=== PATIENT | female | born 1980 | race American Indian/Alaskan Native ===

== ENCOUNTER 2016-08-01 12:01 | Inpatient (IN) | payer MEDICAID ==
[2016-08-01] MEDS ORDERED: CELESTONE SOLUSPAN IM ONE (12:32)
[2016-08-01 14:39] LABS: Hematocrit 27.7 % (30.3-42.9); Mean Corpuscular HGB Conc 33 % (30-34); Mean Corpuscular Hemoglobin 28 pg (28-32); Mean Corpuscular Volume 86 fl (79-97); Platelet Count 486 K/mm3 (140-440); Red Blood Count 3.24 M/mm3 (3.65-5.03); Red Cell Distribution Width 14.7 % (13.2-15.2)
[2016-08-01 14:42] LABS: White Blood Count 21.7 K/mm3 (4.5-11.0)
[2016-08-01 15:00] LABS: Bilirubin,Urine NEG (Negative); Blood,Urine SM (Negative); Ketones,Urine NEG (Negative); Leukocyte Esterase,Urine NEG (Negative); Nitrite,Urine NEG (Negative); Urobilinogen,Urine < 2.0 mg/dL (<2.0)
[2016-08-01 15:03] LABS: Alanine Aminotransferase 9 units/L (7-56)
[2016-08-01 15:07] LABS: Lactate Dehydrogenase 262 units/L (91-180)
[2016-08-01] MEDS ORDERED: COLACE PO PRN (15:39)
--- NOTE | 2016-08-01 15:53 | History and Physical Report ---
History of Present Illness Date of examination: 08/01/16 Date of admission: 08/01/2016 History of present illness: 35y/o @27+3 weeks presents to the office to drop off her 24hr urine collection. BP found to be 184/86. Patient complains of facial edema and pedal edema. She reports overall not feeling well. Patient has had 3 prior pregnancies affected by preeclampsia. Late presentation to care @ 20 weeks. Patient has been normotensive until today. Past History Past Medical History: other (PIH; G6PD; sickle cell trait) Past Surgical History: other (excision of granulosa cell ovarian tumor) Family/Genetic History: sickle cell/trait Social history: - Obstetrical History Expected Date of Delivery: 10/28/16 Actual Gestation: 27 Week(s) 3 Day(s) : 6 Para: 3 Hx # Term Pregnancies: 3 Number of Pregnancies: 0 Spontaneous Abortions: 2 Induced : 0 Number of Living Children: 3 Medications and Allergies Allergies Allergy/AdvReac Type Severity Reaction Status Date / Time No Known Allergies Allergy Unverified 08/01/16 12:22 Active Meds: Active Medications Acetaminophen (Tylenol) 650 mg PO Q4H PRN PRN Reason: Pain MILD(1-3)/Fever >100.5/KHOURY Docusate Sodium (Colace) 100 mg PO Q12H PRN PRN Reason: Constipation Lactated Ringer's (Lactated Ringers) 1,000 mls @ 125 mls/hr IV DIRECT HI Methyldopa (Aldomet) 500 mg PO Q8HR [facility] Multivitamins/Iron/Calcium ( Vitamin) 1 each PO QDAY [facility] Review of Systems Constitutional: fatigue Eyes: blurred vision Gastrointestinal: no abdominal pain - Vital Signs Vital signs: Vital Signs Pulse BP 153 H 166/91 08/01/16 12:39 08/01/16 12:39 Temp Pulse Resp BP Pulse Ox 97.8 F 131 H 18 168/79 96 08/01/16 13:50 08/01/16 15:40 08/01/16 13:50 08/01/16 15:27 08/01/16 15:40 - Physical Exam Breasts: Positive: deferred Cardiovascular: Regular rate Lungs: Positive: Clear to auscultation Abdomen: Positive: normal appearance Results Result Diagrams: 08/01/16 14:10 08/01/16 14:10 Abnormal lab results 08/01/16 08/01/16 08/01/16 Range/Units 14:10 14:10 14:10 WBC 21.7 H (4.5-11.0) K/mm3 RBC 3.24 L (3.65-5.03) M/mm3 Hgb 9.0 L (10.1-14.3) gm/dl Hct 27.7 L (30.3-42.9) % Plt Count 486 H (140-440) K/mm3 Creatinine 0.4 L (0.7-1.2) mg/dL Lactate Dehydrogenase 262 H (91-180) units/L Ur Specific [place] 1.002 L (1.003-1.030) All other labs normal. Assessment and Plan - Patient Problems (1) induced hypertension, antepartum Current Visit: Yes Status: Acute Plan to address problem: admit for blood pressure monitoring preeclampsia workup initiate steroid therapy and anti-hypertensives
[2016-08-01] MEDS: ALDOMET PO SCH ×2 (16:12→22:50)
[2016-08-01] MEDS: APRESOLINE IV PRN ×2 (16:35→18:51)
[2016-08-01] MEDS: LACTATED RINGERS 1,000 ML IV SCH (18:58)
[2016-08-01] MEDS: TYLENOL PO PRN (22:45)
[2016-08-02] MEDS: ALDOMET PO SCH ×3 (05:58→21:20)
--- NOTE | 2016-08-02 10:17 | Ultrasound Report ---
OB ULTRASOUND Technique: Transabdominal ultrasound with Doppler interrogation. Gestation: Single Position: Breech Amniotic Fluid: Normal IRENE = 8.7 cm Placenta: Anterior Placental Grade: 0 Heart Rate: 159 BPM BPD: 6.5 cm = 26 w 1 d HC: 25.5 cm = 27 w 5 d AC: 23.1 cm = 27 w 3 d FL: 5.1 cm = 27 w 1 d HC/AC Ratio: 1.11 Cephalic Index: 72.2 Estimated Weight: 2 pounds, 5 ounces or 1051 grams LMP: Not given Clinical age = 27 w 3 d EDC: 10/28/16 US Gest. Age = 27 w 1 d EDC: 10/30/16
--- NOTE | 2016-08-02 13:46 | Progress Note ---
Assessment and Plan IUP at 27 weeks with chronic hypertension vs. early preeclampsia. Patient has been having angry outbursts in the hospital which are in turn increasing her blood pressure.Patient is in the midst of a 24 hour urine collection. She has received 2 doses of steroids at this point. Will await results of urine collection. Hope to prolong if possible. Continue to monitor. Subjective - Subjective Date of service: 08/02/16 Principal diagnosis: Hypertension in Interval history: Patient here for management of hypertension in . Patient was very upset about food offered this morning for breakfast. Patient was also arguing with partner on telephone re: household issues. Patient reports: movement normal, other (mild headache) Objective - Vital Signs Vital Signs: Vital Signs - 12hr 08/02/16 08/02/16 08/02/16 01:13 01:18 01:44 Temperature Pulse Rate 127 H 129 H 127 H Pulse Rate [ Apical] Respiratory Rate Blood Pressure 142/76 Blood Pressure [Right Arm] O2 Sat by Pulse 95 95 Oximetry 08/02/16 08/02/16 08/02/16 01:45 01:50 01:55 Temperature Pulse Rate 126 H 127 H 126 H Pulse Rate [ 127 H Apical] Respiratory 20 Rate Blood Pressure Blood Pressure 142/76 [Right Arm] O2 Sat by Pulse 95 96 96 Oximetry 08/02/16 08/02/16 08/02/16 02:00 02:05 02:56 Temperature Pulse Rate 125 H 130 H 139 H Pulse Rate [ Apical] Respiratory Rate Blood Pressure Blood Pressure [Right Arm] O2 Sat by Pulse 96 97 96 Oximetry 08/02/16 08/02/16 08/02/16 03:01 03:06 03:32 Temperature Pulse Rate 131 H 127 H 125 H Pulse Rate [ Apical] Respiratory Rate Blood Pressure 173/74 Blood Pressure [Right Arm] O2 Sat by Pulse 96 95 Oximetry 08/02/16 08/02/16 08/02/16 03:35 03:38 04:56 Temperature 98.3 F Pulse Rate 123 H 141 H Pulse Rate [ 123 H Apical] Respiratory 20 Rate Blood Pressure 163/72 Blood Pressure 163/72 [Right Arm] O2 Sat by Pulse 97 Oximetry 08/02/16 08/02/16 08/02/16 05:01 05:06 05:11 Temperature Pulse Rate 131 H 120 H 125 H Pulse Rate [ Apical] Respiratory Rate Blood Pressure Blood Pressure [Right Arm] O2 Sat by Pulse 96 97 97 Oximetry 08/02/16 08/02/16 08/02/16 05:27 05:32 05:37 Temperature Pulse Rate 120 H 118 H 126 H Pulse Rate [ Apical] Respiratory Rate Blood Pressure 151/83 Blood Pressure [Right Arm] O2 Sat by Pulse 98 98 97 Oximetry 08/02/16 08/02/16 08/02/16 05:42 05:47 05:52 Temperature Pulse Rate 126 H 125 H 127 H Pulse Rate [ Apical] Respiratory Rate Blood Pressure Blood Pressure [Right Arm] O2 Sat by Pulse 97 97 97 Oximetry 08/02/16 08/02/16 08/02/16 05:57 05:58 06:00 Temperature Pulse Rate 132 H 127 H Pulse Rate [ 127 H Apical] Respiratory 20 Rate Blood Pressure 151/83 Blood Pressure 151/83 [Right Arm] O2 Sat by Pulse 96 Oximetry 08/02/16 08/02/16 08/02/16 07:16 07:18 07:20 Temperature 97.5 F L Pulse Rate 131 H 152 H Pulse Rate [ 136 H Apical] Respiratory 20 Rate Blood Pressure 134/59 Blood Pressure 134/59 [Right Arm] O2 Sat by Pulse 98 96 Oximetry 08/02/16 08/02/16 08/02/16 07:23 07:28 08:28 Temperature Pulse Rate 139 H 135 H 127 H Pulse Rate [ Apical] Respiratory Rate Blood Pressure Blood Pressure [Right Arm] O2 Sat by Pulse 95 95 97 Oximetry 08/02/16 08/02/16 08/02/16 08:33 08:35 08:38 Temperature Pulse Rate 130 H 133 H 131 H Pulse Rate [ Apical] Respiratory Rate Blood Pressure Blood Pressure [Right Arm] O2 Sat by Pulse 96 94 96 Oximetry 08/02/16 08/02/16 08/02/16 08:43 08:48 08:53 Temperature Pulse Rate 132 H 131 H 133 H Pulse Rate [ Apical] Respiratory Rate Blood Pressure Blood Pressure [Right Arm] O2 Sat by Pulse 96 96 95 Oximetry 08/02/16 08/02/16 08/02/16 08:58 09:03 09:08 Temperature Pulse Rate 134 H 134 H 135 H Pulse Rate [ Apical] Respiratory Rate Blood Pressure Blood Pressure [Right Arm] O2 Sat by Pulse 96 95 95 Oximetry 08/02/16 08/02/1617 09:13 09:18 09:23 Temperature Pulse Rate 133 H 135 H 134 H Pulse Rate [ Apical] Respiratory Rate Blood Pressure Blood Pressure [Right Arm] O2 Sat by Pulse 95 95 95 Oximetry 08/02/16 08/02/16 08/02/16 09:28 09:33 12:54 Temperature Pulse Rate 134 H 135 H 124 H Pulse Rate [ Apical] Respiratory Rate Blood Pressure Blood Pressure [Right Arm] O2 Sat by Pulse 95 95 98 Oximetry 08/02/16 08/02/16 08/02/16 12:59 13:00 13:04 Temperature Pulse Rate 127 H 132 H 128 H Pulse Rate [ Apical] Respiratory Rate Blood Pressure 187/104 Blood Pressure [Right Arm] O2 Sat by Pulse 97 97 Oximetry - Exam Breasts: deferred Cardiovascular: Regular rate, Normal S1, Normal S2 Lungs: Clear to auscultation, Normal air movement Abdomen: Present: normal appearance, soft, normal bowel sounds Uterus: Present: normal Extremities: normal Deep Tendon Reflex Grade: Normal +2 - Labs Labs: Abnormal Labs 08/01/16 08/01/16 08/01/16 14:10 14:10 14:10 WBC 21.7 H RBC 3.24 L Hgb 9.0 L Hct 27.7 L Plt Count 486 H Creatinine 0.4 L Lactate Dehydrogenase 262 H Ur Specific [place] 1.002 L Laboratory Results - last 24 hr 08/01/16 08/01/16 08/01/16 14:10 14:10 14:10 WBC 21.7 H RBC 3.24 L Hgb 9.0 L Hct 27.7 L MCV 86 MCH 28 MCHC 33 RDW 14.7 Plt Count 486 H Creatinine 0.4 L Estimated GFR > 60 Uric Acid 6.0 AST 17 ALT 9 Lactate Dehydrogenase 262 H Urine Color Straw Urine Turbidity Clear Urine pH 7.0 Ur Specific [place] 1.002 L Urine Protein 30 mg/dl Urine Glucose (UA) Neg Urine Ketones Neg Urine Blood Sm Urine Nitrite Neg Urine Bilirubin Neg Urine Urobilinogen < 2.0 Ur Leukocyte Esterase Neg Urine WBC (Auto) Not Reportable Urine RBC (Auto) Not Reportable
[2016-08-02 15:10] LABS: Total Protein 24 Hour,Urine 2749.5 (2-200)
[2016-08-02] MEDS ORDERED: ZOFRAN ONE (16:45)
[2016-08-02] MEDS ORDERED: ZOFRAN IV PRN (16:45)
[2016-08-02] MEDS ORDERED: CELESTONE SOLUSPAN IM ONE (19:09)
[2016-08-02] MEDS: TYLENOL PO PRN (20:27)
[2016-08-02] MEDS: APRESOLINE IV PRN (21:34)
[2016-08-02] MEDS: LACTATED RINGERS 1,000 ML IV SCH (21:35)
[2016-08-03] MEDS: ALUM-MAG HYDROX-SIMETH 200-200-20MG/5ML PO PRN (00:45)
[2016-08-03] MEDS: AMBIEN PO PRN ×2 (00:48→20:43)
[2016-08-03] MEDS: ALDOMET PO SCH ×3 (05:22→22:11)
[2016-08-03] MEDS: LACTATED RINGERS 1,000 ML IV SCH ×2 (06:27→15:24)
[2016-08-03] MEDS ORDERED: MAGNESIUM SULFATE 4GM/100ML 4 GM/100 ML BAG IV ONE (06:54)
[2016-08-03] MEDS ORDERED: MAGNESIUM SULFATE 40GM/1000ML 40 GM/1,000 ML BAG IV SCH (07:00)
--- NOTE | 2016-08-03 07:01 | Progress Note ---
Assessment and Plan IUP at 27.5 here for monitoring of preeclampsia. Patient has completed 24 hour urine with 2700 grams of proteint. Complete bed rest recommended for patient. Will continue current regimen with inpatient monitoring. Will repeat PIH labs today. Steroid course completed. Subjective - Subjective Date of service: 08/03/16 Principal diagnosis: Hypertension in Interval history: Patient here for management of hypertension in . Patient has completed 24 hour urine with showed 2700 grams of protein. Patient blood pressure stays in normal range when lying down, but is more labile when awake and moving. Patient reports: new complaints (nausea and vomiting), movement normal, other (mild headache) Objective - Vital Signs Vital Signs: Vital Signs - 12hr 08/02/16 08/02/16 08/02/16 20:01 20:04 20:06 Temperature 98.0 F Pulse Rate 122 H Respiratory 18 Rate Blood Pressure 153/79 O2 Sat by Pulse 98 Oximetry 08/02/16 08/02/16 08/02/16 20:09 20:14 20:19 Temperature Pulse Rate 124 H 124 H 125 H Respiratory Rate Blood Pressure O2 Sat by Pulse 97 97 97 Oximetry 08/02/16 08/02/16 08/02/16 20:24 20:27 20:40 Temperature Pulse Rate 124 H 121 H Respiratory 18 Rate Blood Pressure O2 Sat by Pulse 97 99 Oximetry 08/02/16 08/02/16 08/02/16 20:45 20:50 20:55 Temperature Pulse Rate 122 H 120 H 120 H Respiratory Rate Blood Pressure O2 Sat by Pulse 99 99 98 Oximetry 08/02/16 08/02/16 08/02/16 21:00 21:01 21:15 Temperature Pulse Rate 122 H 123 H 125 H Respiratory Rate Blood Pressure 168/93 167/89 O2 Sat by Pulse 97 94 Oximetry 08/02/16 08/02/16 08/02/16 21:20 21:34 21:50 Temperature Pulse Rate 125 H 125 H 131 H Respiratory Rate Blood Pressure 167/89 167/89 139/58 O2 Sat by Pulse Oximetry 08/02/16 08/02/16 08/02/16 22:59 23:50 23:52 Temperature 97.8 F Pulse Rate 130 H 125 H Respiratory 20 Rate Blood Pressure 122/56 O2 Sat by Pulse 97 Oximetry 08/02/16 08/03/16 08/03/16 23:59 00:05 00:09 Temperature Pulse Rate 127 H 127 H 123 H Respiratory Rate Blood Pressure 191/107 173/85 160/74 O2 Sat by Pulse Oximetry 08/03/16 08/03/16 08/03/16 00:24 00:39 00:54 Temperature Pulse Rate 120 H 122 H 122 H Respiratory Rate Blood Pressure 160/74 167/75 182/83 O2 Sat by Pulse Oximetry 08/03/16 08/03/16 08/03/16 01:00 01:32 02:02 Temperature Pulse Rate 121 H 126 H 126 H Respiratory Rate Blood Pressure 158/74 121/56 128/59 O2 Sat by Pulse Oximetry 08/03/16 08/03/16 08/03/16 02:46 03:44 03:47 Temperature Pulse Rate 123 H 120 H 122 H Respiratory Rate Blood Pressure 146/63 138/68 O2 Sat by Pulse 97 93 Oximetry 08/03/16 08/03/16 08/03/16 03:49 03:51 03:54 Temperature 97.4 F L Pulse Rate 120 H 122 H Respiratory 20 Rate Blood Pressure O2 Sat by Pulse 97 97 Oximetry 08/03/16 08/03/16 08/03/16 03:59 04:04 04:09 Temperature Pulse Rate 122 H 116 H 122 H Respiratory Rate Blood Pressure O2 Sat by Pulse 98 98 96 Oximetry 08/03/16 08/03/16 08/03/16 04:14 04:19 04:24 Temperature Pulse Rate 119 H 122 H 121 H Respiratory Rate Blood Pressure O2 Sat by Pulse 97 96 96 Oximetry 08/03/16 08/03/16 08/03/16 04:29 04:34 04:39 Temperature Pulse Rate 121 H 119 H 121 H Respiratory Rate Blood Pressure O2 Sat by Pulse 96 96 96 Oximetry 08/03/16 08/03/16 08/03/16 04:44 04:47 04:49 Temperature Pulse Rate 119 H 122 H 121 H Respiratory Rate Blood Pressure 129/62 O2 Sat by Pulse 96 94 96 Oximetry 08/03/16 08/03/16 08/03/16 04:54 04:59 05:19 Temperature Pulse Rate 121 H 122 H 125 H Respiratory Rate Blood Pressure O2 Sat by Pulse 96 96 94 Oximetry 08/03/16 08/03/16 08/03/16 05:20 05:22 05:25 Temperature Pulse Rate 127 H 127 H 124 H Respiratory Rate Blood Pressure 156/72 156/72 O2 Sat by Pulse 94 97 Oximetry 08/03/16 08/03/16 08/03/16 05:47 06:22 06:27 Temperature Pulse Rate 117 H 125 H 120 H Respiratory Rate Blood Pressure 133/60 O2 Sat by Pulse 96 92 Oximetry 08/03/16 08/03/16 08/03/16 06:32 06:34 06:37 Temperature Pulse Rate 122 H 123 H 126 H Respiratory Rate Blood Pressure O2 Sat by Pulse 95 92 95 Oximetry 08/03/16 08/03/16 06:39 06:46 Temperature Pulse Rate 126 H 122 H Respiratory Rate Blood Pressure 137/76 O2 Sat by Pulse 92 Oximetry - Exam Cardiovascular: Regular rate, Normal S1, Normal S2 Lungs: Clear to auscultation, Normal air movement Abdomen: Present: normal appearance, soft. Absent: distention, tenderness Uterus: Present: normal FHR: auscultation normal - Labs Labs: Abnormal Labs 08/01/16 08/01/16 08/01/16 14:10 14:10 14:10 WBC 21.7 H RBC 3.24 L Hgb 9.0 L Hct 27.7 L Plt Count 486 H Creatinine 0.4 L Lactate Dehydrogenase 262 H Ur Specific [place] 1.002 L Ur Total Protein 24 Hr Urine Total Protein 08/01/16 Unknown WBC RBC Hgb Hct Plt Count Creatinine Lactate Dehydrogenase Ur Specific [place] Ur Total Protein 24 Hr 2749.50 H Urine Total Protein 39 H Laboratory Results - last 24 hr 08/01/16 Unknown Urine Total Volume 7050 Urine Creatinine 16.8 Ur Creatinine 24 Hour 1.2 Ur Total Protein 24 Hr 2749.50 H Urine Total Protein 39 H
[2016-08-03 07:52] LABS: Hematocrit 24.3 % (30.3-42.9); Hemoglobin 8.1 gm/dl (10.1-14.3); Mean Corpuscular HGB Conc 33 % (30-34); Mean Corpuscular Hemoglobin 29 pg (28-32); Mean Corpuscular Volume 85 fl (79-97); Platelet Count 429 K/mm3 (140-440); Red Blood Count 2.85 M/mm3 (3.65-5.03); Red Cell Distribution Width 14.7 % (13.2-15.2); White Blood Count 16.8 K/mm3 (4.5-11.0)
[2016-08-03 08:10] LABS: Alanine Aminotransferase 13 units/L (7-56)
[2016-08-03] MEDS: PRENATAL VITAMIN PO SCH (10:05)
[2016-08-03] MEDS: APRESOLINE IV PRN ×2 (13:56→15:27)
[2016-08-03] MEDS: TYLENOL PO PRN (16:03)
[2016-08-04] MEDS: TYLENOL PO PRN ×2 (02:12→10:53)
[2016-08-04] MEDS: LACTATED RINGERS 1,000 ML IV SCH ×2 (02:15→15:53)
--- NOTE | 2016-08-04 08:43 | Progress Note ---
Assessment and Plan A: IUP at 27w6d s/p 2 doses of betamethasone Elevated blood pressure- chronic hypertension vs mild preeeclampsia H/o preeclampsia in three previous pregnancies Breech on last ultrasound on 08/01/16. BPP 12/02 P: Continue close monitoring. MFM consult BPP today, verify presentation PIH labs and Type and Screen today. Subjective - Subjective Date of service: 08/04/16 Principal diagnosis: Hypertension in ; IUP at 27w6d Interval history: Pt reports mild headache and nasal stuffiness presently. She denies vaginal bleeding, leakage of fluid or contractions. Patient reports: new complaints (nausea and vomiting), movement normal, other (mild headache), no loss of fluid, no vaginal bleeding, no contractions Objective - Vital Signs Vital Signs: Vital Signs - 12hr 08/03/16 08/03/16 08/03/16 20:42 20:47 20:52 Temperature Pulse Rate 132 H 125 H 127 H Pulse Rate [ Apical] Respiratory Rate Blood Pressure Blood Pressure [Right Arm] O2 Sat by Pulse 97 97 97 Oximetry 08/03/16 08/03/16 08/03/16 20:57 20:59 21:02 Temperature Pulse Rate 127 H 125 H 124 H Pulse Rate [ Apical] Respiratory Rate Blood Pressure 165/78 Blood Pressure [Right Arm] O2 Sat by Pulse 97 94 96 Oximetry 08/03/16 08/03/16 08/03/16 21:07 21:12 21:17 Temperature Pulse Rate 125 H 125 H 128 H Pulse Rate [ Apical] Respiratory Rate Blood Pressure Blood Pressure [Right Arm] O2 Sat by Pulse 97 95 95 Oximetry 08/03/16 08/03/16 08/03/16 21:19 21:22 21:25 Temperature Pulse Rate 127 H 128 H 128 H Pulse Rate [ Apical] Respiratory Rate Blood Pressure Blood Pressure [Right Arm] O2 Sat by Pulse 94 95 94 Oximetry 08/03/16 08/03/16 08/03/16 21:27 21:32 21:37 Temperature Pulse Rate 130 H 130 H 124 H Pulse Rate [ Apical] Respiratory Rate Blood Pressure Blood Pressure [Right Arm] O2 Sat by Pulse 95 96 96 Oximetry 08/03/16 08/03/16 08/03/16 21:42 21:59 22:08 Temperature Pulse Rate 129 H 126 H 129 H Pulse Rate [ Apical] Respiratory Rate Blood Pressure 182/83 157/72 Blood Pressure [Right Arm] O2 Sat by Pulse 95 Oximetry 08/03/16 08/03/16 08/03/16 22:11 22:12 22:17 Temperature Pulse Rate 129 H 124 H 122 H Pulse Rate [ Apical] Respiratory Rate Blood Pressure 157/72 Blood Pressure [Right Arm] O2 Sat by Pulse 97 97 Oximetry 08/03/16 08/03/16 08/03/16 22:22 22:27 22:32 Temperature Pulse Rate 124 H 131 H 128 H Pulse Rate [ Apical] Respiratory Rate Blood Pressure Blood Pressure [Right Arm] O2 Sat by Pulse 96 97 98 Oximetry 08/03/16 08/03/16 08/03/16 22:37 22:42 22:44 Temperature Pulse Rate 123 H 125 H 131 H Pulse Rate [ Apical] Respiratory Rate Blood Pressure Blood Pressure [Right Arm] O2 Sat by Pulse 97 95 93 Oximetry 08/03/16 08/03/16 08/03/16 22:59 23:53 23:58 Temperature Pulse Rate 129 H 124 H 123 H Pulse Rate [ Apical] Respiratory Rate Blood Pressure 140/63 Blood Pressure [Right Arm] O2 Sat by Pulse 96 96 Oximetry 08/03/16 08/04/16 08/04/16 23:59 00:19 00:24 Temperature Pulse Rate 123 H 124 H 123 H Pulse Rate [ Apical] Respiratory Rate Blood Pressure 143/67 Blood Pressure [Right Arm] O2 Sat by Pulse 92 96 97 Oximetry 08/04/16 08/04/16 08/04/16 00:29 00:34 00:39 Temperature Pulse Rate 127 H 129 H 127 H Pulse Rate [ Apical] Respiratory Rate Blood Pressure Blood Pressure [Right Arm] O2 Sat by Pulse 96 97 96 Oximetry 08/04/16 08/04/16 08/04/16 00:44 00:49 00:54 Temperature Pulse Rate 131 H 127 H 126 H Pulse Rate [ Apical] Respiratory Rate Blood Pressure Blood Pressure [Right Arm] O2 Sat by Pulse 97 96 97 Oximetry 08/04/16 08/04/16 08/04/16 00:59 01:04 01:09 Temperature Pulse Rate 127 H 126 H 127 H Pulse Rate [ Apical] Respiratory Rate Blood Pressure 136/69 Blood Pressure [Right Arm] O2 Sat by Pulse 97 97 96 Oximetry 08/04/16 08/04/16 08/04/16 01:14 01:19 01:24 Temperature Pulse Rate 127 H 128 H 127 H Pulse Rate [ Apical] Respiratory Rate Blood Pressure Blood Pressure [Right Arm] O2 Sat by Pulse 96 96 95 Oximetry 08/04/16 08/04/16 08/04/16 01:29 01:34 01:39 Temperature Pulse Rate 124 H 127 H 126 H Pulse Rate [ Apical] Respiratory Rate Blood Pressure Blood Pressure [Right Arm] O2 Sat by Pulse 96 96 96 Oximetry 08/04/16 08/04/16 08/04/16 01:44 01:49 01:54 Temperature Pulse Rate 127 H 123 H 124 H Pulse Rate [ Apical] Respiratory Rate Blood Pressure Blood Pressure [Right Arm] O2 Sat by Pulse 96 96 96 Oximetry 08/04/16 08/04/16 08/04/16 01:59 02:10 02:15 Temperature Pulse Rate 128 H 121 H 121 H Pulse Rate [ Apical] Respiratory Rate Blood Pressure Blood Pressure [Right Arm] O2 Sat by Pulse 96 96 97 Oximetry 08/04/16 08/04/16 08/04/16 02:16 02:19 02:20 Temperature 97.8 F Pulse Rate 122 H 118 H Pulse Rate [ 120 H Apical] Respiratory 20 Rate Blood Pressure 145/65 Blood Pressure 145/65 [Right Arm] O2 Sat by Pulse 97 97 Oximetry 08/04/16 08/04/16 08/04/16 02:25 02:30 02:35 Temperature Pulse Rate 120 H 121 H 118 H Pulse Rate [ Apical] Respiratory Rate Blood Pressure Blood Pressure [Right Arm] O2 Sat by Pulse 97 97 98 Oximetry 08/04/16 08/04/16 08/04/16 02:40 02:45 02:50 Temperature Pulse Rate 118 H 118 H 116 H Pulse Rate [ Apical] Respiratory Rate Blood Pressure Blood Pressure [Right Arm] O2 Sat by Pulse 96 96 97 Oximetry 08/04/16 08/04/16 08/04/16 02:55 02:58 03:00 Temperature Pulse Rate 127 H 128 H 120 H Pulse Rate [ Apical] Respiratory Rate Blood Pressure Blood Pressure [Right Arm] O2 Sat by Pulse 96 93 96 Oximetry 08/04/16 08/04/16 08/04/16 03:05 03:10 03:15 Temperature Pulse Rate 121 H 125 H 119 H Pulse Rate [ Apical] Respiratory Rate Blood Pressure Blood Pressure [Right Arm] O2 Sat by Pulse 96 97 97 Oximetry 08/04/16 08/04/16 08/04/16 03:20 03:25 03:30 Temperature Pulse Rate 119 H 115 H 116 H Pulse Rate [ Apical] Respiratory Rate Blood Pressure Blood Pressure [Right Arm] O2 Sat by Pulse 97 96 97 Oximetry 08/04/16 08/04/16 08/04/16 03:35 03:40 03:45 Temperature Pulse Rate 119 H 118 H 117 H Pulse Rate [ Apical] Respiratory Rate Blood Pressure Blood Pressure [Right Arm] O2 Sat by Pulse 97 96 95 Oximetry 08/04/16 08/04/16 08/04/16 03:50 03:55 03:59 Temperature Pulse Rate 112 H 115 H 116 H Pulse Rate [ Apical] Respiratory Rate Blood Pressure 127/65 Blood Pressure [Right Arm] O2 Sat by Pulse 97 95 Oximetry 08/04/16 08/04/16 08/04/16 04:00 04:05 04:10 Temperature Pulse Rate 117 H 117 H 115 H Pulse Rate [ Apical] Respiratory Rate Blood Pressure Blood Pressure [Right Arm] O2 Sat by Pulse 97 95 95 Oximetry 08/04/16 08/04/16 08/04/16 04:15 04:20 04:22 Temperature Pulse Rate 115 H 114 H 117 H Pulse Rate [ Apical] Respiratory Rate Blood Pressure Blood Pressure [Right Arm] O2 Sat by Pulse 95 95 94 Oximetry 08/04/16 08/04/16 08/04/16 04:25 04:27 04:30 Temperature Pulse Rate 115 H 116 H 113 H Pulse Rate [ Apical] Respiratory Rate Blood Pressure Blood Pressure [Right Arm] O2 Sat by Pulse 95 94 95 Oximetry 08/04/16 08/04/16 08/04/16 04:32 04:35 04:48 Temperature Pulse Rate 120 H 117 H 111 H Pulse Rate [ Apical] Respiratory Rate Blood Pressure Blood Pressure [Right Arm] O2 Sat by Pulse 94 94 97 Oximetry 08/04/16 08/04/16 08/04/16 04:53 04:58 04:59 Temperature Pulse Rate 114 H 116 H 112 H Pulse Rate [ Apical] Respiratory Rate Blood Pressure 150/79 Blood Pressure [Right Arm] O2 Sat by Pulse 92 94 Oximetry 08/04/16 08/04/16 08/04/16 05:03 05:08 05:11 Temperature Pulse Rate 113 H 117 H 115 H Pulse Rate [ Apical] Respiratory Rate Blood Pressure Blood Pressure [Right Arm] O2 Sat by Pulse 94 94 93 Oximetry 08/04/16 08/04/16 08/04/16 05:13 05:18 05:23 Temperature Pulse Rate 111 H 115 H 112 H Pulse Rate [ Apical] Respiratory Rate Blood Pressure Blood Pressure [Right Arm] O2 Sat by Pulse 97 94 95 Oximetry 08/04/16 08/04/16 08/04/16 05:25 05:28 05:30 Temperature Pulse Rate 113 H 113 H 112 H Pulse Rate [ Apical] Respiratory Rate Blood Pressure Blood Pressure [Right Arm] O2 Sat by Pulse 94 95 94 Oximetry 08/04/16 08/04/16 08/04/16 05:33 05:36 05:38 Temperature Pulse Rate 112 H 112 H 111 H Pulse Rate [ Apical] Respiratory Rate Blood Pressure Blood Pressure [Right Arm] O2 Sat by Pulse 94 94 94 Oximetry 08/04/16 08/04/16 08/04/16 05:43 05:48 05:49 Temperature Pulse Rate 113 H 110 H 114 H Pulse Rate [ Apical] Respiratory Rate Blood Pressure Blood Pressure [Right Arm] O2 Sat by Pulse 94 94 94 Oximetry 08/04/16 08/04/16 08/04/16 05:53 05:55 05:58 Temperature Pulse Rate 113 H 111 H 111 H Pulse Rate [ Apical] Respiratory Rate Blood Pressure Blood Pressure [Right Arm] O2 Sat by Pulse 95 94 94 Oximetry 08/04/16 08/04/16 08/04/16 05:59 06:00 06:03 Temperature Pulse Rate 110 H 112 H 112 H Pulse Rate [ Apical] Respiratory Rate Blood Pressure 126/66 Blood Pressure [Right Arm] O2 Sat by Pulse 94 94 Oximetry 08/04/16 08/04/16 08/04/16 06:06 06:08 06:13 Temperature Pulse Rate 113 H 111 H 111 H Pulse Rate [ Apical] Respiratory Rate Blood Pressure Blood Pressure [Right Arm] O2 Sat by Pulse 94 95 95 Oximetry 08/04/16 08/04/16 08/04/16 06:18 06:23 06:28 Temperature Pulse Rate 112 H 113 H 114 H Pulse Rate [ Apical] Respiratory Rate Blood Pressure Blood Pressure [Right Arm] O2 Sat by Pulse 95 95 95 Oximetry 08/04/16 08/04/16 08/04/16 06:31 06:33 06:36 Temperature Pulse Rate 117 H 126 H 120 H Pulse Rate [ Apical] Respiratory Rate Blood Pressure Blood Pressure [Right Arm] O2 Sat by Pulse 94 96 94 Oximetry 08/04/16 08/04/16 08/04/16 06:38 06:43 06:48 Temperature Pulse Rate 115 H 112 H 110 H Pulse Rate [ Apical] Respiratory Rate Blood Pressure Blood Pressure [Right Arm] O2 Sat by Pulse 95 93 97 Oximetry 08/04/16 08/04/16 08/04/16 06:51 06:53 06:58 Temperature Pulse Rate 114 H 113 H 112 H Pulse Rate [ Apical] Respiratory Rate Blood Pressure Blood Pressure [Right Arm] O2 Sat by Pulse 86 95 95 Oximetry 08/04/16 08/04/16 08/04/16 06:59 07:03 07:10 Temperature Pulse Rate 110 H 116 H 126 H Pulse Rate [ Apical] Respiratory Rate Blood Pressure 160/85 Blood Pressure [Right Arm] O2 Sat by Pulse 93 97 97 Oximetry 08/04/16 08/04/16 08/04/16 07:15 07:20 07:25 Temperature Pulse Rate 120 H 111 H 112 H Pulse Rate [ Apical] Respiratory Rate Blood Pressure Blood Pressure [Right Arm] O2 Sat by Pulse 97 97 95 Oximetry 08/04/16 08/04/16 08/04/16 07:27 07:30 07:35 Temperature Pulse Rate 118 H 108 H 106 H Pulse Rate [ Apical] Respiratory Rate Blood Pressure Blood Pressure [Right Arm] O2 Sat by Pulse 94 94 93 Oximetry 08/04/16 08/04/16 08/04/16 07:40 07:43 07:45 Temperature Pulse Rate 97 H 105 H 109 H Pulse Rate [ Apical] Respiratory Rate Blood Pressure Blood Pressure [Right Arm] O2 Sat by Pulse 93 94 94 Oximetry 08/04/16 08/04/16 08/04/16 07:50 07:53 07:55 Temperature Pulse Rate 111 H 111 H 113 H Pulse Rate [ Apical] Respiratory Rate Blood Pressure Blood Pressure [Right Arm] O2 Sat by Pulse 93 92 95 Oximetry 08/04/16 08/04/16 08/04/16 07:59 08:00 08:01 Temperature Pulse Rate 109 H 114 H 110 H Pulse Rate [ Apical] Respiratory Rate Blood Pressure 150/85 159/107 Blood Pressure [Right Arm] O2 Sat by Pulse 93 92 Oximetry 08/04/16 08/04/16 08/04/16 08:02 08:05 08:10 Temperature Pulse Rate 106 H 116 H 111 H Pulse Rate [ Apical] Respiratory Rate Blood Pressure 157/70 Blood Pressure [Right Arm] O2 Sat by Pulse 93 93 Oximetry 08/04/16 08/04/16 08/04/16 08:15 08:20 08:25 Temperature Pulse Rate 114 H 107 H 111 H Pulse Rate [ Apical] Respiratory Rate Blood Pressure Blood Pressure [Right Arm] O2 Sat by Pulse 93 97 96 Oximetry 08/04/16 08/04/16 08/04/16 08:30 08:32 08:35 Temperature Pulse Rate 109 H 109 H 110 H Pulse Rate [ Apical] Respiratory Rate Blood Pressure Blood Pressure [Right Arm] O2 Sat by Pulse 96 94 95 Oximetry - Exam Breasts: deferred Cardiovascular: Regular rate Lungs: Clear to auscultation Abdomen: Present: soft (obese ) Uterus: Present: normal (gravid ) FHR: auscultation normal Uterine Contraction Monitor Mode: External Uterine Contraction Pattern: Absent Uterine Tone Measurement Phase: Resting Extremities: normal (SCDs on and functioning ) - Labs Labs: Abnormal Labs 08/01/16 08/01/16 08/01/16 14:10 14:10 14:10 WBC 21.7 H RBC 3.24 L Hgb 9.0 L Hct 27.7 L Plt Count 486 H Creatinine 0.4 L Lactate Dehydrogenase 262 H Ur Specific [place] 1.002 L Ur Total Protein 24 Hr Urine Total Protein 08/01/16 08/03/16 08/03/16 Unknown 07:43 07:43 WBC 16.8 H RBC 2.85 L Hgb 8.1 L Hct 24.3 L Plt Count Creatinine 0.3 L Lactate Dehydrogenase Ur Specific [place] Ur Total Protein 24 Hr 2749.50 H Urine Total Protein 39 H - Results US- obstetric: report reviewed
--- NOTE | 2016-08-04 10:35 | Ultrasound Report ---
BIOPHYSICAL PROFILE: INDICATION: well being, elevated BP, IUP at 27 weeks. COMPARISON: None similar. TECHNIQUE: Transabdominal ultrasound with Doppler interrogation. 2 - breathing movements 2 - movements 2 - posture and tone 2 - Qualitative amniotic fluid volume 8 - TOTAL SCORE OF POSSIBLE 8 Heart Rate (bpm) 145
[2016-08-04] MEDS: PRENATAL VITAMIN PO SCH ×2 (10:50→10:53)
[2016-08-04 10:57] LABS: Hematocrit 25.4 % (30.3-42.9); Hemoglobin 8.4 gm/dl (10.1-14.3); Mean Corpuscular HGB Conc 33 % (30-34); Mean Corpuscular Hemoglobin 28 pg (28-32); Mean Corpuscular Volume 85 fl (79-97); Platelet Count 419 K/mm3 (140-440); Red Blood Count 2.99 M/mm3 (3.65-5.03); Red Cell Distribution Width 15.1 % (13.2-15.2); White Blood Count 19.5 K/mm3 (4.5-11.0)
[2016-08-04 11:22] LABS: Alanine Aminotransferase 15 units/L (7-56); Lactate Dehydrogenase 207 units/L (91-180); Uric Acid 6.8 mg/dL (3.5-7.6)
[2016-08-04] MEDS: ALDOMET PO SCH ×2 (14:19→21:45)
[2016-08-04] MEDS: AMBIEN PO PRN (21:45)
--- NOTE | 2016-08-04 23:42 | Consultation ---
History of Present Illness Consult date: 08/04/16 Reason for consult: gestational hypertension (35y/o @27 weeks admitted due to PIH concerns based on her earlier BP found to be 184/86. . She has a at significant risk for recurrent preeclampsia with ALL prior pregnancies. ) Past History Past Medical History: hypertension, other (PIH; G6PD; sickle cell trait) Past Surgical History: other (excision of granulosa cell ovarian tumor) Family/Genetic History: sickle cell/trait - Obstetrical History : 6 Medications and Allergies Allergies Allergy/AdvReac Type Severity Reaction Status Date / Time aspirin AdvReac thins Verified 08/03/16 06:59 blood out naproxen AdvReac THINS Verified 08/03/16 06:59 BLOOD OUT Sulfa (Sulfonamide AdvReac thins Verified 08/03/16 06:59 Antibiotics) blood out sulfamethoxazole AdvReac thins Verified 08/03/16 06:59 [From Bactrim] blood out trimethoprim [From Bactrim] AdvReac thins Verified 08/03/16 06:59 blood out Home Medications Medication Instructions Recorded Confirmed Last Taken Type Vit-Fe Fumar-FA [ 1 tab PO QDAY 08/02/16 08/02/16 Unknown History Vitamin] Active Meds: Active Medications Acetaminophen (Tylenol) 650 mg PO Q4H PRN PRN Reason: Pain MILD(1-3)/Fever >100.5/KHOURY Last Admin: 08/04/16 10:53 Dose: 650 mg Al Hydrox/Mg Hydrox/Simethicone (Alum-Mag Hydrox-Simeth [phone]/5ml) 30 ml PO Q4H PRN PRN Reason: Indigestion Last Admin: 08/03/16 00:45 Dose: 30 ml Docusate Sodium (Colace) 100 mg PO Q12H PRN PRN Reason: Constipation Hydralazine HCl (Apresoline) 5 mg IV Q30MIN PRN PRN Reason: Hypertension Last Admin: 08/03/16 15:27 Dose: 5 mg Lactated Ringer's (Lactated Ringers) 1,000 mls @ 125 mls/hr IV DIRECT HI Last Admin: 08/04/16 15:53 Dose: 125 mls/hr Methyldopa (Aldomet) 500 mg PO Q8HR HI Last Admin: 08/04/16 21:45 Dose: 500 mg Multivitamins/Iron/Calcium ( Vitamin) 1 each PO QDAY [facility] Last Admin: 08/04/16 10:53 Dose: 1 each Ondansetron HCl (Zofran) 4 mg IV Q4H PRN PRN Reason: Nausea And Vomiting Last Admin: 08/02/16 16:54 Dose: 4 mg Zolpidem Tartrate (Ambien) 5 mg PO QHS PRN PRN Reason: Sleep Last Admin: 08/04/16 21:45 Dose: 5 mg - Vital Signs Vital signs: Vital Signs Pulse BP 153 H 166/91 08/01/16 12:39 08/01/16 12:39 Temp Pulse Resp BP Pulse Ox 97.7 F 134 H 20 134/85 77 L 08/04/16 20:19 08/04/16 22:59 08/04/16 20:19 08/04/16 22:59 08/04/16 12:12 Results Result Diagrams: 08/04/16 10:22 08/04/16 10:22 Abnormal lab results 08/04/16 08/04/16 Range/Units 10:22 10:22 WBC 19.5 H (4.5-11.0) K/mm3 RBC 2.99 L (3.65-5.03) M/mm3 Hgb 8.4 L (10.1-14.3) gm/dl Hct 25.4 L (30.3-42.9) % Creatinine 0.4 L (0.7-1.2) mg/dL Lactate Dehydrogenase 207 H (91-180) units/L All other labs normal. Assessment and Plan IMPRESSIONS: 1. IUP @ 27 weeks 2. Significantly elevated BPs that have required hydralazine therapy 3. 24-hr urine with 2.7 gm protein 4. Stable BPs post hydralazine 5. PIH labs otherwise unremarlable 6. Denies any GENER[employer] M[employer]ER Sx/Sy 7. RECOMMENDATIONS: 1. Betamethasone 2. MgSO4 for neuroprophylaxis 3. She will require serial PIH lbas with continued hospital stay 4. Is/Os 5. Monitor serial PIH labs 6. [facility] will follow-up.
[2016-08-05] MEDS: TYLENOL PO PRN ×2 (00:33→21:50)
[2016-08-05] MEDS: LACTATED RINGERS 1,000 ML IV SCH ×3 (00:34→15:51)
[2016-08-05] MEDS: ALDOMET PO SCH ×2 (06:40→15:53)
--- NOTE | 2016-08-05 08:08 | Ultrasound Report ---
ULTRASOUND OB LIMITED History: well being, need position Technique: Transabdominal ultrasound with Doppler interrogation. Gestation: Single Position: Cephalic Heart Rate: 158 BPM
[2016-08-05] MEDS: PRENATAL VITAMIN PO SCH (08:35)
--- NOTE | 2016-08-05 08:49 | Progress Note ---
Assessment and Plan - Patient Problems (1) induced hypertension, antepartum Status: Acute Plan to address problem: will initiate use of labetalol for better hypertensive control Subjective - Subjective Date of service: 08/05/16 Principal diagnosis: Hypertension in ; IUP at 27w6d Interval history: 35y/o @27+6 weeks admitted for worsening blood pressures. Currently with diagnosis of mild preeclampsia. Blood pressures remain labile with aldomet and prn hydralazine. Discussed the need for prolonged hospitalization. Patient reports: movement normal, no new complaints, no loss of fluid, no vaginal bleeding, no contractions Objective - Vital Signs Vital Signs: Vital Signs - 12hr 08/04/16 08/04/16 08/04/16 21:45 22:00 22:59 Temperature Pulse Rate 110 H 121 H 134 H Respiratory Rate Blood Pressure 140/93 174/78 134/85 Blood Pressure [Right Arm] O2 Sat by Pulse Oximetry 08/04/16 08/05/16 08/05/16 23:59 00:10 00:14 Temperature 97.2 F L Pulse Rate 116 H 117 H Respiratory 20 Rate Blood Pressure 185/99 153/70 Blood Pressure 153/70 [Right Arm] O2 Sat by Pulse Oximetry 08/05/16 08/05/16 08/05/16 00:33 00:59 01:26 Temperature Pulse Rate 108 H 111 H Respiratory 20 Rate Blood Pressure 149/100 136/70 Blood Pressure [Right Arm] O2 Sat by Pulse Oximetry 08/05/16 08/05/16 08/05/16 01:59 02:29 02:33 Temperature Pulse Rate 109 H 115 H 108 H Respiratory Rate Blood Pressure 154/68 Blood Pressure [Right Arm] O2 Sat by Pulse 98 94 Oximetry 08/05/16 08/05/16 08/05/16 02:34 02:39 02:44 Temperature Pulse Rate 109 H 115 H 113 H Respiratory Rate Blood Pressure Blood Pressure [Right Arm] O2 Sat by Pulse 98 97 97 Oximetry 08/05/16 08/05/16 08/05/16 02:49 02:54 02:59 Temperature Pulse Rate 113 H 111 H 112 H Respiratory Rate Blood Pressure 126/63 Blood Pressure [Right Arm] O2 Sat by Pulse 96 96 96 Oximetry 08/05/16 08/05/16 08/05/16 03:04 03:09 03:14 Temperature Pulse Rate 112 H 112 H 113 H Respiratory Rate Blood Pressure Blood Pressure [Right Arm] O2 Sat by Pulse 95 95 95 Oximetry 08/05/16 08/05/16 08/05/16 03:19 03:24 03:29 Temperature Pulse Rate 112 H 115 H 111 H Respiratory Rate Blood Pressure Blood Pressure [Right Arm] O2 Sat by Pulse 95 95 95 Oximetry 08/05/16 08/05/16 08/05/16 03:34 03:35 03:39 Temperature Pulse Rate 116 H 111 H 112 H Respiratory Rate Blood Pressure Blood Pressure [Right Arm] O2 Sat by Pulse 95 94 96 Oximetry 08/05/16 08/05/16 08/05/16 03:44 03:49 03:54 Temperature Pulse Rate 122 H 120 H 111 H Respiratory Rate Blood Pressure Blood Pressure [Right Arm] O2 Sat by Pulse 96 96 95 Oximetry 08/05/16 08/05/16 08/05/16 03:59 04:04 04:09 Temperature Pulse Rate 106 H 104 H 110 H Respiratory Rate Blood Pressure 152/65 Blood Pressure [Right Arm] O2 Sat by Pulse 96 96 95 Oximetry 08/05/16 08/05/16 08/05/16 04:10 04:16 04:59 Temperature 98.0 F Pulse Rate 111 H 109 H Respiratory 22 Rate Blood Pressure 150/70 181/84 Blood Pressure [Right Arm] O2 Sat by Pulse Oximetry 08/05/16 08/05/16 08/05/16 05:59 06:59 07:45 Temperature Pulse Rate 104 H 105 H 105 H Respiratory Rate Blood Pressure 140/77 187/79 160/68 Blood Pressure [Right Arm] O2 Sat by Pulse Oximetry 08/05/16 08/05/16 07:59 08:01 Temperature 98.2 F Pulse Rate 108 H Respiratory 18 Rate Blood Pressure 164/77 Blood Pressure [Right Arm] O2 Sat by Pulse Oximetry - Labs Labs: Abnormal Labs 08/01/16 08/01/16 08/01/16 14:10 14:10 14:10 WBC 21.7 H RBC 3.24 L Hgb 9.0 L Hct 27.7 L Plt Count 486 H Creatinine 0.4 L Lactate Dehydrogenase 262 H Ur Specific [place] 1.002 L Ur Total Protein 24 Hr Urine Total Protein 08/01/16 08/03/16 08/03/16 Unknown 07:43 07:43 WBC 16.8 H RBC 2.85 L Hgb 8.1 L Hct 24.3 L Plt Count Creatinine 0.3 L Lactate Dehydrogenase Ur Specific [place] Ur Total Protein 24 Hr 2749.50 H Urine Total Protein 39 H 08/04/16 08/04/16 10:22 10:22 WBC 19.5 H RBC 2.99 L Hgb 8.4 L Hct 25.4 L Plt Count Creatinine 0.4 L Lactate Dehydrogenase 207 H Ur Specific [place] Ur Total Protein 24 Hr Urine Total Protein Laboratory Results - last 24 hr 08/04/16 08/04/16 08/04/16 10:22 10:22 10:22 WBC 19.5 H RBC 2.99 L Hgb 8.4 L Hct 25.4 L MCV 85 MCH 28 MCHC 33 RDW 15.1 Plt Count 419 Creatinine 0.4 L Estimated GFR > 60 Uric Acid 6.8 AST 25 ALT 15 Lactate Dehydrogenase 207 H Blood Type A POSITIVE Antibody Screen Negative
[2016-08-05] MEDS: APRESOLINE IV PRN (10:11)
--- NOTE | 2016-08-05 10:51 | Admit Criteria Form ---
Admission Criteria Documentation: HYPERTENSIVE DISORDERS OF Clinical Indications for Admission to Inpatient Care (Place 'X' for any and all applicable criteria): Admission is indicated for ANY ONE of the following (1)(2)(3)(4)(5): [ ]I. Eclampsia[A][B] [ ]II. Preeclampsia with severe features (ie, severe preeclampsia) indicated by ANY ONE of the following[B][C]: [ ]a) SBP greater than or equal to 160 mm Hg or DBP greater than or equal to 110 mm Hg on 2 occasions at least 4 hours apart while the patient is at bed rest (unless antihypertensive therapy is initiated before this time) [ ]b) Platelet count less than 100,000/mm3 (100 x109/L) [ ]c) Impaired liver function as indicated by ANY ONE of the following: [ ]i. Elevation of liver enzymes (eg, SGOT, SGPT) to twice normal concentration [ ]ii. Severe persistent right upper quadrant or epigastric pain unresponsive to medication and not accounted for by alternative diagnosis [ ]d) Progressive renal insufficiency indicated by ANY ONE of the following: [ ]i. Serum creatinine concentration greater than 1.1 mg/dL (97 micromoles/L) [ ]ii. Doubling (from baseline) of serum creatinine concentration in the absence of other renal disease [ ]e) Pulmonary edema [ ]f) Cerebral or visual symptoms (eg, headache, Altered mental status , changes in vision) [ ]III. Delivery planned due to nonsevere preeclampsia as indicated by ALL of the following: [ ]a) Nonsevere preeclampsia present as indicated by ALL of the following: [ ]i. Woman at 20 or more weeks' gestation [ ]ii. New-onset SBP greater than or equal to 140 mm Hg but less than 160 mm Hg or DBP greater than or equal to 90 mm Hg but less than 110 mm Hg on 2 occasions at least 4 hours apart [ ]iii. Proteinuria present as indicated by ANY ONE of the following: [ ]A. Urinary protein excretion greater than or equal to 300 mg per 24-hour collection (or this amount extrapolated from a shorter timed collection) [ ]B. Protein/creatinine ratio greater than or equal to 0.3 (measured in mg/dL) [ ]b) Delivery indicated due to ANY ONE of the following: [ ]i. Gestational age of 37 0/7 weeks or more [ ]ii. Gestational age of 34 0/7 weeks to 36 6/7 weeks and ANY ONE of the following: [ ]A. Progressive labor or rupture of membranes [ ]B. Abnormal biophysical profile [ ]C. Suspected abruptio placentae [ ]D. Ultrasound estimate of weight less than 5th percentile [ ]E. Other indication for delivery [ ]IV. Delivery planned due to gestational hypertension[D] because of ANY ONE of the following: [ ]a) Delivery indicated because gestational age of 37 0/7 weeks or more has been reached [ ]b) Gestational age of 34 0/7 weeks to 36 6/7 weeks for which delivery is indicated because of ANY ONE of the following: [ ]i. Progressive labor or rupture of membranes [ ]ii. Abnormal biophysical profile [ ]iii. Suspected abruptio placentae [ ]iv. Ultrasound estimate of weight less than 5th percentile [ ]v. Other indication for delivery [ ]V. Hypertension of any category[E] during with acute end organ damage as indicated by ANY ONE of the following: [ ]a) Hypertensive encephalopathy (eg, Altered mental status that is severe or persistent )(11) [ ]b) Cerebral infarction [ ]c) Intracranial hemorrhage [ ]d) Myocardial ischemia or infarction [ ]e) Pulmonary edema [ ]f) Aortic dissection [ ]g) Seizure [ ]h) Papilledema [ ]i) Microangiopathic hemolytic anemia [ ]j) Visual loss [ ]k) Acute renal failure [ ]) Hypertension during with evidence of compromise as indicated by ANY ONE of the following: [ ]a) Abnormal heart tones [ ]b) Abnormal stress test [ ]c) Abnormal biophysical profile [X]VII) patient requires inpatient control of blood pressure indicated by (see Hypertensive Disorders of : Observation Care [facility] guideline as appropriate) ALL of the following: [X]a) SBP is greater than or equal to 160 mm Hg or DBP is greater than or equal to 105 mm Hg [X]b) Blood pressure cannot be reduced below these levels with outpatient or observation care treatment (eg, oral medications not effective) Extended stay beyond goal length of stay may be needed for : [ ]a) Eclampsia [ ]b) Ongoing compromise [ ]c) Complications of hypertensive disorders of [ ]d) Active comorbidities (eg, heart failure, poorly controlled diabetes, renal insufficiency) [ ]e) Persistent hypertension [ ]f) Delivery planned The original [facility] content created by [facility] has been revised. The portions of the content which have been revised are identified through the use of italic text or in bold, and [facility] has neither reviewed nor approved the modified material. All other unmodified content is copyright [facility]. Please see references footnoted in the original [facility] edition 2016. Admission Criteria Met: Yes
[2016-08-05] MEDS: NORMODYNE PO SCH ×2 (13:36→22:24)
--- NOTE | 2016-08-05 20:02 | Progress Note ---
Assessment and Plan ASSESSMENT: * IUP @ 27 weeks * Significantly elevated BPs that have required labetalol therapy * Improved BP on Labetalol. 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 * MgSO4 for neuroprophylaxis * She is currently undergoing require serial PIH lbas with continued hospital stay * Monitor input and output * Monitor serial PIH labs * Twice weekly biophysical profiles. * Continued hospitalization. Patient is NOT a candidate for outpatient management. Subjective - Subjective Date of service: 08/05/16 Principal diagnosis: Hypertension in ; IUP at 27w6d Interval history: This is a 35 year old para 3023 with gestational hypertension @27 weeks. Patient was admitted with earlier BP found to be 184/86. . She has a at significant risk for recurrent preeclampsia with ALL prior pregnancies. Earlier today we started Labetalol. * Earlier Blood Pressure: 140/99189/82384/85 * Current blood pressures: 133/74, 120/73, 138/73, 147/73 Patient reports: movement normal, no new complaints, no loss of fluid, no vaginal bleeding, no contractions Objective - Vital Signs Vital Signs: Vital Signs - 12hr 08/05/16 08/05/16 08/05/16 08:59 09:59 10:16 Temperature Pulse Rate 108 H 107 H 102 H Blood Pressure 186/103 178/81 171/103 08/05/16 08/05/16 08/05/16 10:21 10:26 10:59 Temperature Pulse Rate 110 H 105 H 112 H Blood Pressure 159/74 142/71 134/64 08/05/16 08/05/16 08/05/16 11:59 12:07 12:10 Temperature 98.2 F Pulse Rate 116 H 121 H Blood Pressure 174/95 148/70 08/05/16 08/05/16 08/05/16 13:32 13:36 14:59 Temperature Pulse Rate 115 H 115 H 115 H Blood Pressure 144/63 144/63 129/82 08/05/16 08/05/16 08/05/16 15:53 15:59 16:59 Temperature Pulse Rate 115 H 116 H 115 H Blood Pressure 129/82 133/74 120/73 08/05/16 08/05/16 08/05/16 17:59 18:59 19:59 Temperature Pulse Rate 115 H 117 H 117 H Blood Pressure 138/73 147/73 117/57 - Labs Labs: Abnormal Labs 08/01/16 08/01/16 08/01/16 14:10 14:10 14:10 WBC 21.7 H RBC 3.24 L Hgb 9.0 L Hct 27.7 L Plt Count 486 H Creatinine 0.4 L Lactate Dehydrogenase 262 H Ur Specific [place] 1.002 L Ur Total Protein 24 Hr Urine Total Protein 08/01/16 08/03/16 08/03/16 Unknown 07:43 07:43 WBC 16.8 H RBC 2.85 L Hgb 8.1 L Hct 24.3 L Plt Count Creatinine 0.3 L Lactate Dehydrogenase Ur Specific [place] Ur Total Protein 24 Hr 2749.50 H Urine Total Protein 39 H 08/04/16 08/04/16 10:22 10:22 WBC 19.5 H RBC 2.99 L Hgb 8.4 L Hct 25.4 L Plt Count Creatinine 0.4 L Lactate Dehydrogenase 207 H Ur Specific [place] Ur Total Protein 24 Hr Urine Total Protein
[2016-08-05] MEDS: AMBIEN PO PRN (21:50)
[2016-08-06] MEDS: LACTATED RINGERS 1,000 ML IV SCH ×3 (00:07→18:23)
[2016-08-06] MEDS: ALDOMET PO SCH ×5 (00:09→23:41)
[2016-08-06] MEDS: ALUM-MAG HYDROX-SIMETH 200-200-20MG/5ML PO PRN (00:27)
[2016-08-06] MEDS: NORMODYNE PO SCH ×2 (10:09→22:01)
[2016-08-06] MEDS: PRENATAL VITAMIN PO SCH ×2 (10:26→10:27)
--- NOTE | 2016-08-06 12:42 | Progress Note ---
Assessment and Plan A: IUP at 28w1d s/p 2 doses of betamethasone Elevated blood pressure- chronic hypertension vs mild preeeclampsia. Currently on Labetalol 400 mg BID and Aldomet 500 mg PO TID H/o preeclampsia in three previous pregnancies Cephalic on last ultrasound on 08/04/16. BPP 12/02 today P: Repeat PIH labs today. Continued inpatient management per [facility] recommendations Subjective - Subjective Date of service: 08/06/16 Principal diagnosis: Hypertension in ; IUP at 28w1d Interval history: Pt reports mild back pain. She denies any other obstetric complaints. Patient reports: movement normal, no new complaints, no loss of fluid, no vaginal bleeding, no contractions Objective - Vital Signs Vital Signs: Vital Signs - 12hr 08/06/16 08/06/16 08/06/16 00:59 01:59 07:38 Temperature Pulse Rate 104 H 108 H 104 H Pulse Rate [ From Monitor] Respiratory Rate Blood Pressure 137/62 105/70 169/72 Blood Pressure [Right Arm] O2 Sat by Pulse Oximetry 08/06/16 08/06/16 08/06/16 08:19 08:41 08:59 Temperature Pulse Rate 103 H 99 H 100 H Pulse Rate [ From Monitor] Respiratory Rate Blood Pressure 185/89 145/77 153/74 Blood Pressure [Right Arm] O2 Sat by Pulse Oximetry 08/06/16 08/06/16 08/06/16 09:59 10:08 10:09 Temperature Pulse Rate 109 H 109 H 105 H Pulse Rate [ From Monitor] Respiratory Rate Blood Pressure 139/61 139/61 141/67 Blood Pressure [Right Arm] O2 Sat by Pulse Oximetry 08/06/16 08/06/16 08/06/16 10:27 10:28 10:30 Temperature 98 F Pulse Rate 107 H 105 H Pulse Rate [ 105 H From Monitor] Respiratory 20 Rate Blood Pressure 142/66 Blood Pressure 142/66 [Right Arm] O2 Sat by Pulse 97 Oximetry 08/06/16 08/06/16 08/06/16 10:33 10:38 10:41 Temperature Pulse Rate 109 H 109 H 109 H Pulse Rate [ From Monitor] Respiratory Rate Blood Pressure Blood Pressure [Right Arm] O2 Sat by Pulse 96 97 93 Oximetry 08/06/16 08/06/16 08/06/16 10:43 10:48 12:05 Temperature Pulse Rate 110 H 110 H 111 H Pulse Rate [ From Monitor] Respiratory Rate Blood Pressure Blood Pressure [Right Arm] O2 Sat by Pulse 95 98 97 Oximetry 08/06/16 08/06/16 08/06/16 12:10 12:15 12:19 Temperature Pulse Rate 113 H 113 H 112 H Pulse Rate [ From Monitor] Respiratory Rate Blood Pressure 137/79 Blood Pressure [Right Arm] O2 Sat by Pulse 97 97 Oximetry 08/06/16 08/06/16 08/06/16 12:20 12:25 12:30 Temperature Pulse Rate 115 H 111 H 113 H Pulse Rate [ From Monitor] Respiratory Rate Blood Pressure Blood Pressure [Right Arm] O2 Sat by Pulse 97 97 97 Oximetry 08/06/16 12:35 Temperature Pulse Rate 109 H Pulse Rate [ From Monitor] Respiratory Rate Blood Pressure Blood Pressure [Right Arm] O2 Sat by Pulse 96 Oximetry - Exam Breasts: deferred Cardiovascular: Regular rate Lungs: Clear to auscultation Abdomen: Present: soft (gravid ) FHR: auscultation normal Uterine Tone Measurement Phase: Resting Extremities: normal - Labs Labs: Abnormal Labs 08/01/16 08/01/16 08/01/16 14:10 14:10 14:10 WBC 21.7 H RBC 3.24 L Hgb 9.0 L Hct 27.7 L Plt Count 486 H Creatinine 0.4 L Lactate Dehydrogenase 262 H Ur Specific [place] 1.002 L Ur Total Protein 24 Hr Urine Total Protein 08/01/16 08/03/16 08/03/16 Unknown 07:43 07:43 WBC 16.8 H RBC 2.85 L Hgb 8.1 L Hct 24.3 L Plt Count Creatinine 0.3 L Lactate Dehydrogenase Ur Specific [place] Ur Total Protein 24 Hr 2749.50 H Urine Total Protein 39 H 08/04/16 08/04/16 10:22 10:22 WBC 19.5 H RBC 2.99 L Hgb 8.4 L Hct 25.4 L Plt Count Creatinine 0.4 L Lactate Dehydrogenase 207 H Ur Specific [place] Ur Total Protein 24 Hr Urine Total Protein - Results US- obstetric: report reviewed
--- NOTE | 2016-08-06 13:45 | Consultation ---
History of Present Illness Consult date: 08/06/16 Requesting physician: RADHA RIOS History of present illness: ASSESSMENT: * [place] IUP at 28 0/7 weeks * Significantly elevated BPs that have required labetalol therapy * Improved BP on Labetalol. 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 * MgSO4 for neuroprophylaxis * She is currently undergoing require serial PIH lbas with continued hospital stay * Monitor input and output * Monitor serial PIH labs * Twice weekly biophysical profiles. * Continued hospitalization. Patient is NOT a candidate for outpatient management. * Delivery for S/S of Severe Preeclampsia or compromise Subjective - Subjective Date of service: 08/05/16 Principal diagnosis: Hypertension in ; IUP 28 0/7 weeks Interval history: This is a 35 year old para 3023 with gestational hypertension @28 weeks. Patient was admitted with earlier BP found to be 184/86. . She has a at significant risk for recurrent preeclampsia with ALL prior pregnancies. Earlier today we started Labetalol. * Earlier Blood Pressure: 140/82845/45602/85 * Current blood pressure - 166/64 Patient reports: movement normal, no new complaints, no loss of fluid, no vaginal bleeding, no contractions Past History Past Medical History: hypertension, other (PIH; G6PD; sickle cell trait) Past Surgical History: other (excision of granulosa cell ovarian tumor) Family/Genetic History: sickle cell/trait - Obstetrical History : 6 Medications and Allergies Allergies Allergy/AdvReac Type Severity Reaction Status Date / Time aspirin AdvReac thins Verified 08/03/16 06:59 blood out naproxen AdvReac THINS Verified 08/03/16 06:59 BLOOD OUT Sulfa (Sulfonamide AdvReac thins Verified 08/03/16 06:59 Antibiotics) blood out sulfamethoxazole AdvReac thins Verified 08/03/16 06:59 [From Bactrim] blood out trimethoprim [From Bactrim] AdvReac thins Verified 08/03/16 06:59 blood out Home Medications Medication Instructions Recorded Confirmed Last Taken Type Vit-Fe Fumar-FA [ 1 tab PO QDAY 08/02/16 08/02/16 Unknown History Vitamin] Active Meds: Active Medications Acetaminophen (Tylenol) 650 mg PO Q4H PRN PRN Reason: Pain MILD(1-3)/Fever >100.5/KHOURY Last Admin: 08/05/16 21:50 Dose: 650 mg Al Hydrox/Mg Hydrox/Simethicone (Alum-Mag Hydrox-Simeth 192-906-42sg/5ml) 30 ml PO Q4H PRN PRN Reason: Indigestion Last Admin: 08/06/16 00:27 Dose: 30 ml Docusate Sodium (Colace) 100 mg PO Q12H PRN PRN Reason: Constipation Hydralazine HCl (Apresoline) 5 mg IV Q30MIN PRN PRN Reason: Hypertension Last Admin: 08/05/16 10:11 Dose: 5 mg Lactated Ringer's (Lactated Ringers) 1,000 mls @ 125 mls/hr IV DIRECT HI Last Admin: 08/06/16 10:07 Dose: 125 mls/hr Labetalol HCl (Normodyne) 400 mg PO BID [facility] Last Admin: 08/06/16 10:09 Dose: 400 mg Methyldopa (Aldomet) 500 mg PO 0000,0800,1600 [facility] Last Admin: 08/06/16 08:11 Dose: 500 mg Multivitamins/Iron/Calcium ( Vitamin) 1 each PO QDAY [facility] Last Admin: 08/06/16 10:27 Dose: 1 each Ondansetron HCl (Zofran) 4 mg IV Q4H PRN PRN Reason: Nausea And Vomiting Last Admin: 08/02/16 16:54 Dose: 4 mg Zolpidem Tartrate (Ambien) 5 mg PO QHS PRN PRN Reason: Sleep Last Admin: 08/05/16 21:50 Dose: 5 mg - Vital Signs Vital signs: Vital Signs Pulse BP 153 H 166/91 08/01/16 12:39 08/01/16 12:39 Temp Pulse Resp BP Pulse Ox 98 F 111 H 20 144/64 94 08/06/16 10:30 08/06/16 13:09 08/06/16 10:30 08/06/16 12:59 08/06/16 13:09 Results Result Diagrams: 08/04/16 10:22 08/04/16 10:22 All other labs normal.
[2016-08-06 13:52] LABS: Hematocrit 25.4 % (30.3-42.9); Hemoglobin 8.4 gm/dl (10.1-14.3); Mean Corpuscular HGB Conc 33 % (30-34); Mean Corpuscular Hemoglobin 28 pg (28-32); Mean Corpuscular Volume 85 fl (79-97); Platelet Count 394 K/mm3 (140-440); Red Blood Count 2.98 M/mm3 (3.65-5.03); Red Cell Distribution Width 14.8 % (13.2-15.2); White Blood Count 15.1 K/mm3 (4.5-11.0)
[2016-08-06 14:42] LABS: Alanine Aminotransferase 17 units/L (7-56); Lactate Dehydrogenase 201 units/L (91-180); Uric Acid 6.5 mg/dL (3.5-7.6)
--- NOTE | 2016-08-06 14:44 | Ultrasound Report ---
ULTRASOUND BIOPHYSICAL PROFILE: History: well being Technique: Transabdominal ultrasound with Doppler interrogation. 2 - breathing movements 2 - movements 2 - posture and tone 2 - Qualitative amniotic fluid volume 8 - TOTAL SCORE OF POSSIBLE 8 Heart Rate (bpm) 152
[2016-08-06] MEDS: TYLENOL PO PRN (22:01)
[2016-08-06] MEDS: AMBIEN PO PRN (22:02)
--- NOTE | 2016-08-07 06:05 | Progress Note ---
Assessment and Plan A: IUP at 28w2d s/p 2 doses of betamethasone Elevated blood pressure- chronic hypertension vs mild preeeclampsia. Currently on Labetalol 400 mg BID and Aldomet 500 mg PO TID H/o preeclampsia in three previous pregnancies BPP on 08/06/16 8/8 PIH labs stable P: Continue current management. Subjective - Subjective Date of service: 08/07/16 Principal diagnosis: Hypertension in ; IUP at 28w2d Interval history: Pt reports mild back pain. She denies any other obstetric complaints. Patient reports: movement normal, no new complaints, no loss of fluid, no vaginal bleeding, no contractions Objective - Vital Signs Vital Signs: Vital Signs - 12hr 08/06/16 08/06/16 08/06/16 18:09 18:12 18:59 Temperature 98.4 F Pulse Rate 118 H 120 H Pulse Rate [ 118 H From Monitor] Respiratory 20 Rate Blood Pressure 154/82 170/87 Blood Pressure 154/82 [Right Arm] 08/06/16 08/06/16 08/06/16 19:59 20:19 21:00 Temperature 97.9 F Pulse Rate 114 H 113 H Pulse Rate [ 88 From Monitor] Respiratory 18 Rate Blood Pressure 165/79 136/98 Blood Pressure 162/79 [Right Arm] 08/06/16 08/06/16 08/06/16 22:01 23:34 23:41 Temperature Pulse Rate 113 H 109 H 109 H Pulse Rate [ From Monitor] Respiratory Rate Blood Pressure 136/98 139/63 139/63 Blood Pressure [Right Arm] 08/06/16 08/07/16 08/07/16 23:59 01:00 01:59 Temperature Pulse Rate 106 H 111 H 105 H Pulse Rate [ From Monitor] Respiratory Rate Blood Pressure 147/68 134/71 130/70 Blood Pressure [Right Arm] 08/07/16 05:59 Temperature Pulse Rate 106 H Pulse Rate [ From Monitor] Respiratory Rate Blood Pressure 127/57 Blood Pressure [Right Arm] - Exam Breasts: deferred Cardiovascular: Regular rate Lungs: Clear to auscultation Abdomen: Present: soft (gravid ) Uterus: Present: normal (enlarged ) FHR: auscultation normal Uterine Contraction Monitor Mode: External Uterine Contraction Pattern: Absent Extremities: normal - Labs Labs: Abnormal Labs 08/01/16 08/01/16 08/01/16 14:10 14:10 14:10 WBC 21.7 H RBC 3.24 L Hgb 9.0 L Hct 27.7 L Plt Count 486 H Creatinine 0.4 L Lactate Dehydrogenase 262 H Ur Specific [place] 1.002 L Ur Total Protein 24 Hr Urine Total Protein 08/01/16 08/03/16 08/03/16 Unknown 07:43 07:43 WBC 16.8 H RBC 2.85 L Hgb 8.1 L Hct 24.3 L Plt Count Creatinine 0.3 L Lactate Dehydrogenase Ur Specific [place] Ur Total Protein 24 Hr 2749.50 H Urine Total Protein 39 H 08/04/16 08/04/16 08/06/16 10:22 10:22 12:31 WBC 19.5 H 15.1 H RBC 2.99 L 2.98 L Hgb 8.4 L 8.4 L Hct 25.4 L 25.4 L Plt Count Creatinine 0.4 L Lactate Dehydrogenase 207 H Ur Specific [place] Ur Total Protein 24 Hr Urine Total Protein 08/06/16 12:31 WBC RBC Hgb Hct Plt Count Creatinine 0.4 L Lactate Dehydrogenase 201 H Ur Specific [place] Ur Total Protein 24 Hr Urine Total Protein Laboratory Results - last 24 hr 08/06/16 08/06/16 12:31 12:31 WBC 15.1 H RBC 2.98 L Hgb 8.4 L Hct 25.4 L MCV 85 MCH 28 MCHC 33 RDW 14.8 Plt Count 394 Creatinine 0.4 L Estimated GFR > 60 Uric Acid 6.5 AST 24 ALT 17 Lactate Dehydrogenase 201 H
[2016-08-07] MEDS: ALDOMET PO SCH ×2 (08:41→16:21)
[2016-08-07] MEDS ORDERED: FEOSOL PO SCH (10:00)
[2016-08-07] MEDS: NORMODYNE PO SCH (10:19)
[2016-08-07] MEDS: PRENATAL VITAMIN PO SCH (10:19)
[2016-08-07 16:03] VITALS: BP 139/65
--- NOTE | 2016-08-07 16:24 | Event Note ---
Date: 08/07/16 Pt called to ask to speak with physician senior analytic consultant. She reports that she needs to go home to take care of personal matters. She mentions that she has had preeclampsia three times and is aware of the signs and symptoms. Pt informed that [facility] recommendation is for inpatient management. She agrees to sign the AMA form. She was given PIH precautions and instructed to follow up with her primary Traveling Plant Operator Dr Marc as well as MFM early next week. Pt expressed understanding.
--- NOTE | 2016-08-07 16:25 | Discharge Summary ---
Providers - Providers Date of Admission: 08/01/16 15:43 Date of discharge: 08/07/16 Attending physician: RADHA RIOS 08/04/16 07:26 Consult to Physician [CONS] Routine Consulting Provider: MARICARMEN GUZMAN Reason For Exam: IUP at 27 wks, preeclampsia Place consult to:: Maxim Zaldivar Notified:: OFFICE Phone number called:: [phone] Was contact made?: Yes If yes, spoke with:: AISHA Time called:: 07:34 Comment:: WILL CONTACT Anderson.Darrick O/C Primary care physician: RADHA RIOS Hospitalization Reason for admission: other (hypertension, 28 wks ) Hospital course: Pt was admitted to the hospital for serial blood pressures and evaluation for preeclampsia. She was observed in house for six days with intermittent monitoring, ultrasounds and serial PIH labs when the pt reported that she needed to leave for personal reasons on 08/11/16. She signed the Against Medical Advice form and was discharged with prescriptions for labetalol and aldomet. Condition at discharge: Stable Disposition: DISCHARGED TO HOME OR SELFCARE - Discharge Diagnoses (1) induced hypertension, antepartum Status: Acute Plan - Discharge Medications Prescriptions: Labetalol [Normodyne TAB] 400 mg PO BID #112 tablet Methyldopa [Aldomet] 500 mg PO TID #84 tablet - Provider Discharge Summary Activity: routine Diet: routine Instructions: routine Additional instructions: [] Smoking cessation referral if applicable(refer to patient education folder for contact #) [] Refer to [facility]'s [facility] Booklet Call your doctor immediately for: * Fever > 100.5 * Heavy vaginal bleeding ( >1 pad per hour) * Severe persistent headache * Shortness of breath * Reddened, hot, painful area to leg or breast * Drainage or odor from incision. * Keep incision clean and dry at all times and follow doctor's instructions regarding bathing/showering - Follow up plan Follow up: LUZ NGUYỄN MD [Staff Physician] - 08/11/16 (Thursday August 11, 2016 at 11:15 am ) MARICARMEN GUZMAN MD [Staff Physician] - 7 Days
== END 2016-08-07 17:06 | disposition home or self-care (01) | DRG 781 ==
LOC: TRG 12:01 → LD 12:02 → TRG 15:00 → LD 15:43 → TRG 08-06 08:29 → LD 08-06 08:29 → TRG 08-06 09:16 → LD 08-06 09:16
PROVIDERS: ADMIT Obstetrics & Gynecology; ATTEND Obstetrics & Gynecology
DX: O13.2 Gestational [pregnancy-induced] hypertension without significant proteinuria, second trimester (principal); O99.012 Anemia complicating pregnancy, second trimester; D64.9 Anemia, unspecified; Z3A.27 27 weeks gestation of pregnancy; Z88.2 Allergy status to sulfonamides; Z88.6 Allergy status to analgesic agent; Z88.8 Allergy status to other drugs, medicaments and biological substances
CPT/HCPCS: 36415; 76816; 76819; 81001; 82565; 82570; 83615; 84156; 84450; 84460; 84550; 85027; 86850; 86900; 86901; J0360; J0702; J2405; J7120

== ENCOUNTER 2017-07-25 19:36 | Emergency (ER) | payer MEDICAID ==
--- NOTE | 2017-07-25 21:57 | Emergency Department Report ---
HPI - General Chief Complaint: Sore Throat Time Seen by Provider: 07/25/17 21:18 - HPI HPI: Patient is 36-year-old female who presents to ED complaining of throat pain 7 days. Patient describes pain as throbbing in nature, 8 out of 10 intensity, nonradiating, localized to his throat. Patient states she thinks she will have strep throat and wanted to come have it evaluated. Patient denies event/cough nausea/vomiting/abdominal pain/shortness of breath/ chest pain/headache or any other problems. ED Past Medical Hx - Past Medical History Previous Medical History?: Yes Hx Hypertension: No Hx Congestive Heart Failure: No Hx Diabetes: No Hx Deep Vein Thrombosis: No Hx Renal Disease: No Hx Sickle Cell Disease: No Hx Seizures: No Hx Asthma: No Hx COPD: No Hx HIV: No - Surgical History Past Surgical History?: No - Social History Smoking Status: Unknown if ever smoked Substance Use Type: None - Medications Home Medications: Home Medications Medication Instructions Recorded Confirmed Last Taken Type Vit-Fe Fumar-FA [ 1 tab PO QDAY 08/02/16 08/31/16 08/30/16 History Vitamin] Labetalol [Normodyne TAB] 400 mg PO BID #112 tablet 08/07/16 08/31/16 08/31/16 Rx Methyldopa [Aldomet] 500 mg PO TID #84 tablet 08/07/16 08/31/16 08/27/16 Rx Ferrous Sulfate [Feosol 325 MG tab] 325 mg PO BID #60 tablet 09/02/16 Unknown Rx HYDROcodone/APAP 5-325 [[place] 1 each PO Q6HR PRN #30 tablet 09/02/16 Unknown Rx 5/325] Ibuprofen [Motrin] 800 mg PO Q8HR PRN #60 tablet 09/02/16 Unknown Rx Labetalol [Normodyne TAB] 400 mg PO BID #60 tablet 09/02/16 Unknown Rx NIFEdipine XL [Procardia Xl] 60 mg PO QDAY #30 tablet 09/02/16 Unknown Rx Nystas/Diphen/Xyl Visc/Mylanta 30 ml MM Q6H PRN #200 ml 07/25/17 Unknown Rx [Magic Mouthwash] ED Review of Systems ROS: Stated complaint: SORE THROAT Other details as noted in HPI Constitutional: denies: chills, fever Eyes: denies: eye pain, eye discharge, vision change ENT: throat pain. denies: ear pain Respiratory: denies: cough, shortness of breath, wheezing Cardiovascular: denies: chest pain, palpitations Endocrine: no symptoms reported Gastrointestinal: denies: abdominal pain, nausea, diarrhea Genitourinary: denies: urgency, dysuria, discharge Musculoskeletal: denies: back pain, joint swelling, arthralgia Skin: denies: rash, lesions Neurological: denies: headache, weakness, paresthesias Psychiatric: denies: anxiety, depression Hematological/Lymphatic: denies: easy bleeding, easy bruising Physical Exam - Physical Exam Vital Signs: Vital Signs 07/25/17 20:02 Temperature 99.3 F Pulse Rate 104 H Respiratory 12 Rate Blood Pressure 152/95 O2 Sat by Pulse 96 Oximetry Physical Exam: GENERAL: Alert and oriented x3, no apparent distress, Normal Gait, atraumatic. HEAD: Head is normocephalic and a-traumatic. MOUTH:Mouth is well hydrated and without lesions. Tonsils mildly erythematous but non swollen, Uvula midline, Tongue not elevated. Mucous membranes are moist. Posterior pharynx clear, no exudate or lesions. Patent airways. NECK: Supple. Non edematous, No lymphadenopathy or thyromegaly. No C-spine tenderness LUNGS: Symetrical with respiration, No wheezing, no rales or crackles, CTAB. HEART: S1, S2 present, regular rate and rhythm without murmur, no rubs, no gallops. Non tender to palpation SKIN: Warm and dry, No lesions, No ulceration or induration present. ED Course Vital Signs 07/25/17 20:02 Temperature 99.3 F Pulse Rate 104 H Respiratory 12 Rate Blood Pressure 152/95 O2 Sat by Pulse 96 Oximetry ED Medical Decision Making - Medical Decision Making 36-year-old female presents with pharyngitis. ED course: Rapid strep tests ordered rapid strep test negative Patient had no fever and ED stay Vital signs stable patient is in no acute or respiratory distress. Discussed Magic mouthwash 3-4 times daily to help with the throat pain Discussed with the patient can use Motrin as needed for pain Discussed with patient follow-up with primary care physician. Patient verbally states he understands and will comply to follow-up. Critical care attestation.: If time is entered above; I have spent that time in minutes in the direct care of this critically ill patient, excluding procedure time. ED Disposition Clinical Impression: Pharyngitis Qualifiers: Pharyngitis/tonsillitis etiology: unspecified etiology Qualified Code(s): J02.9 - Acute pharyngitis, unspecified Disposition: TO HOME OR SELFCARE Is pt being admited?: No Does the pt Need Aspirin: No Condition: Stable Instructions: Pharyngitis (ED) Additional Instructions: Make sure to follow up with the primary care physician as discussed. Take all your medications as you've been prescribed. If you have any worsening symptoms or develop new symptoms please return to ED immediately. Prescriptions: Nystas/Diphen/Xyl Visc/Mylanta [Magic Mouthwash] 30 ml MM Q6H PRN #200 ml PRN Reason: Sore Throat Referrals: SHANEKA ELKINS MD [Primary Care Provider] - 3-5 Days [facility] [Outside] - 3-5 Days [facility] [place] [Outside] - 3-5 Days Forms: Work/School Release Form(ED) Time of Disposition: 22:04
[2017-07-25 23:40] VITALS: BP 151/91
== END 2017-07-25 23:39 | disposition home or self-care (01) ==
LOC: ED 19:36
DX: J02.9 Acute pharyngitis, unspecified (principal)
CPT/HCPCS: 87116; 87430; 99283

== ENCOUNTER 2017-08-20 19:54 | Emergency (ER) | payer MEDICAID ==
[2017-08-20 21:13] VITALS: BP 160/90
--- NOTE | 2017-08-20 22:37 | Emergency Department Report ---
ED General Adult HPI - General Chief complaint: Chest Pain Stated complaint: RT EARACHE Time Seen by Provider: 08/20/17 22:23 Source: patient Mode of arrival: Ambulatory Limitations: No Limitations - History of Present Illness Initial comments: Patient is 36 years old female with a history of -induced hypertension. Presented to the ER complaining of left-sided chest pain this been on and off for the last few weeks. Patient describes her pain as sharp and increases with movement. She denied any shortness of breath, fever or cough. Patient also complaining of right ear hearing probably for the last few weeks. Patient stated that she tried some [id number] wax solution but it did not help. Patient refused blood work for test and workup. -: Gradual - Related Data Home Medications Medication Instructions Recorded Confirmed Last Taken Vit-Fe Fumar-FA [ 1 tab PO QDAY 08/02/16 08/31/16 08/30/16 Vitamin] Previous Rx's Medication Instructions Recorded Last Taken Type Labetalol [Normodyne TAB] 400 mg PO BID #112 tablet 08/07/16 08/31/16 Rx Methyldopa [Aldomet] 500 mg PO TID #84 tablet 08/07/16 08/27/16 Rx Ferrous Sulfate [Feosol 325 MG tab] 325 mg PO BID #60 tablet 09/02/16 Unknown Rx HYDROcodone/APAP 5-325 [[place] 1 each PO Q6HR PRN #30 tablet 09/02/16 Unknown Rx 5/325] Ibuprofen [Motrin] 800 mg PO Q8HR PRN #60 tablet 09/02/16 Unknown Rx Labetalol [Normodyne TAB] 400 mg PO BID #60 tablet 09/02/16 Unknown Rx NIFEdipine XL [Procardia Xl] 60 mg PO QDAY #30 tablet 09/02/16 Unknown Rx Nystas/Diphen/Xyl Visc/Mylanta 30 ml MM Q6H PRN #200 ml 07/25/17 Unknown Rx [Magic Mouthwash] Allergies Allergy/AdvReac Type Severity Reaction Status Date / Time aspirin AdvReac thins Verified 08/03/16 06:59 blood out naproxen AdvReac THINS Verified 08/03/16 06:59 BLOOD OUT Sulfa (Sulfonamide AdvReac thins Verified 08/03/16 06:59 Antibiotics) blood out sulfamethoxazole AdvReac thins Verified 08/03/16 06:59 [From Bactrim] blood out trimethoprim [From Bactrim] AdvReac thins Verified 08/03/16 06:59 blood out ED Review of Systems ROS: Stated complaint: RT EARACHE Other details as noted in HPI Comment: All other systems reviewed and negative Constitutional: denies: chills, fever ENT: ear pain, hearing loss Cardiovascular: chest pain. denies: palpitations, dyspnea on exertion, orthopnea Gastrointestinal: denies: abdominal pain, nausea, vomiting, diarrhea, constipation, hematemesis, hematochezia Musculoskeletal: denies: back pain, joint swelling, arthralgia Neurological: denies: headache, weakness, numbness, paresthesias, confusion ED Past Medical Hx - Past Medical History Previous Medical History?: No Hx Hypertension: Yes (gestational) Hx Congestive Heart Failure: No Hx Diabetes: No Hx Deep Vein Thrombosis: No Hx Renal Disease: No Hx of Cancer: Yes (stomach) Hx Sickle Cell Disease: No Hx Seizures: No Hx Asthma: No Hx COPD: No Hx HIV: No Additional medical history: High Cholesterol - Surgical History Past Surgical History?: Yes Additional Surgical History: Spleenectomy, Right ovary removal - Social History Smoking Status: Current Every Day Smoker Substance Use Type: None, Marijuana - Medications Home Medications: Home Medications Medication Instructions Recorded Confirmed Last Taken Type Vit-Fe Fumar-FA [ 1 tab PO QDAY 08/02/16 08/31/16 08/30/16 History Vitamin] Labetalol [Normodyne TAB] 400 mg PO BID #112 tablet 08/07/16 08/31/16 08/31/16 Rx Methyldopa [Aldomet] 500 mg PO TID #84 tablet 08/07/16 08/31/16 08/27/16 Rx Ferrous Sulfate [Feosol 325 MG tab] 325 mg PO BID #60 tablet 09/02/16 Unknown Rx HYDROcodone/APAP 5-325 [[place] 1 each PO Q6HR PRN #30 tablet 09/02/16 Unknown Rx 5/325] Ibuprofen [Motrin] 800 mg PO Q8HR PRN #60 tablet 09/02/16 Unknown Rx Labetalol [Normodyne TAB] 400 mg PO BID #60 tablet 09/02/16 Unknown Rx NIFEdipine XL [Procardia Xl] 60 mg PO QDAY #30 tablet 09/02/16 Unknown Rx Nystas/Diphen/Xyl Visc/Mylanta 30 ml MM Q6H PRN #200 ml 07/25/17 Unknown Rx [Magic Mouthwash] ED Physical Exam - General Limitations: No Limitations General appearance: alert, in no apparent distress - Head Head exam: Present: atraumatic, normocephalic, normal inspection - Eye Eye exam: Present: normal appearance, PERRL - ENT ENT exam: Present: normal exam, normal orophraynx, mucous membranes moist, other (wax buildup in the right ear) - Neck Neck exam: Present: normal inspection, full ROM. Absent: tenderness, meningismus, lymphadenopathy, thyromegaly - Respiratory Respiratory exam: Present: normal lung sounds bilaterally. Absent: respiratory distress, wheezes, rales, rhonchi, stridor, chest wall tenderness, accessory muscle use, decreased breath sounds, prolonged expiratory - Cardiovascular Cardiovascular Exam: Present: regular rate, normal rhythm, normal heart sounds - GI/Abdominal GI/Abdominal exam: Present: soft, normal bowel sounds. Absent: distended, tenderness, guarding, rebound, rigid, organomegaly, mass, bruit, pulsatile mass , hernia - Extremities Exam Extremities exam: Present: normal inspection, full ROM, normal capillary refill - Back Exam Back exam: Present: normal inspection, full ROM. Absent: tenderness, CVA tenderness (R), CVA tenderness (L), muscle spasm, paraspinal tenderness, vertebral tenderness - Neurological Exam Neurological exam: Present: alert, oriented X3, CN II-XII intact, normal gait - Skin Skin exam: Present: warm, intact, normal color ED Course Vital Signs 08/20/17 21:06 Temperature 98.6 F Pulse Rate 64 Respiratory 18 Rate Blood Pressure 160/90 O2 Sat by Pulse 100 Oximetry ED Medical Decision Making - Medical Decision Making Patient refused blood work. I discussed with the patient the need for the bloodwork patient still refused and she thing that her chest pain is not severe. I informed the patient about the risk of not obtaining blood work. I strongly advised the patient to return to the ER if her symptoms did not go away. Critical care attestation.: If time is entered above; I have spent that time in minutes in the direct care of this critically ill patient, excluding procedure time. ED Disposition Clinical Impression: Chest pain, Hypertension Disposition: DC-01 TO HOME OR SELFCARE Is pt being admited?: No Condition: Stable Instructions: Chest Pain (ED), Hypertension (ED) Referrals: PRIMARY CARE, [Referring] - 3-5 Days
== END 2017-08-20 23:22 | disposition home or self-care (01) ==
LOC: ED 19:54
DX: R07.9 Chest pain, unspecified (principal); I10 Essential (primary) hypertension; E78.00 Pure hypercholesterolemia, unspecified; F17.200 Nicotine dependence, unspecified, uncomplicated; C16.9 Malignant neoplasm of stomach, unspecified; Z88.2 Allergy status to sulfonamides; Z88.8 Allergy status to other drugs, medicaments and biological substances
CPT/HCPCS: 93005; 93010; 99283

== ENCOUNTER 2018-01-07 14:29 | Emergency (ER) | payer MEDICAID ==
[2018-01-07 16:34] LABS: Hematocrit 32.6 % (30.3-42.9); Hemoglobin 10.9 gm/dl (10.1-14.3); Mean Corpuscular HGB Conc 33 % (30-34); Mean Corpuscular Hemoglobin 30 pg (28-32); Mean Corpuscular Volume 89 fl (79-97); Platelet Count 396 K/mm3 (140-440); Red Blood Count 3.67 M/mm3 (3.65-5.03); Red Cell Distribution Width 14.5 % (13.2-15.2)
[2018-01-07 16:56] LABS: Alanine Aminotransferase 12 units/L (7-56); Albumin 3.8 g/dL (3.9-5); BUN/Creatinine Ratio 12; Blood Urea Nitrogen 6 mg/dL (7-17); Calcium 8.9 mg/dL (8.4-10.2); Hemolysis Index 0
[2018-01-07 17:02] LABS: Free T4 (Free Thyroxine) 2.43 ng/dL (0.76-1.46)
[2018-01-07 17:45] LABS: Basophils % (Manual) 0 % (0.0-1.8); RBC Morphology Normal; Total Cells Counted 100
--- NOTE | 2018-01-07 18:30 | Emergency Department Report ---
ED General Adult HPI - General Chief complaint: Weakness Stated complaint: WEAKNESS/DIZZY Time Seen by Provider: 01/07/18 17:57 Source: patient Mode of arrival: Ambulatory Limitations: No Limitations - History of Present Illness Initial comments: Ms. Dudley is 37 yo female who presents with generalized malaise. She has hx of Grave's Disease, ran out of methimazole and propanolol. She recently arrived from [place] yesterday to reunite with her family. Denies fever. Has had cough, non-productive. No chest or abdominal pain. hx of G6PD deficiency, hx of ovarian cancer - Related Data Home Medications Medication Instructions Recorded Confirmed Last Taken Vit-Fe Fumar-FA [ 1 tab PO QDAY 08/02/16 08/31/16 08/30/16 Vitamin] Previous Rx's Medication Instructions Recorded Last Taken Type Labetalol [Normodyne TAB] 400 mg PO BID #112 tablet 08/07/16 08/31/16 Rx Methyldopa [Aldomet] 500 mg PO TID #84 tablet 08/07/16 08/27/16 Rx Ferrous Sulfate [Feosol 325 MG tab] 325 mg PO BID #60 tablet 09/02/16 Unknown Rx HYDROcodone/APAP 5-325 [[place] 1 each PO Q6HR PRN #30 tablet 09/02/16 Unknown Rx 5/325] Ibuprofen [Motrin] 800 mg PO Q8HR PRN #60 tablet 09/02/16 Unknown Rx Labetalol [Normodyne TAB] 400 mg PO BID #60 tablet 09/02/16 Unknown Rx NIFEdipine XL [Procardia Xl] 60 mg PO QDAY #30 tablet 09/02/16 Unknown Rx Nystas/Diphen/Xyl Visc/Mylanta 30 ml MM Q6H PRN #200 ml 07/25/17 Unknown Rx [Magic Mouthwash] hydroCHLOROthiazide [HCTZ] 25 mg PO QDAY #30 tablet 08/20/17 Unknown Rx Methimazole [Tapazole] 3 tab PO Q8H 30 Days #270 tablet 01/07/18 Unknown Rx Propranolol [Inderal] 40 mg PO DAILY 30 Days #30 tablet 01/07/18 Unknown Rx Allergies Allergy/AdvReac Type Severity Reaction Status Date / Time aspirin AdvReac thins Verified 08/03/16 06:59 blood out naproxen AdvReac THINS Verified 08/03/16 06:59 BLOOD OUT Sulfa (Sulfonamide AdvReac thins Verified 08/03/16 06:59 Antibiotics) blood out sulfamethoxazole AdvReac thins Verified 08/03/16 06:59 [From Bactrim] blood out trimethoprim [From Bactrim] AdvReac thins Verified 08/03/16 06:59 blood out ED Review of Systems ROS: Stated complaint: WEAKNESS/DIZZY Other details as noted in HPI Comment: All other systems reviewed and negative Constitutional: malaise. denies: fever Respiratory: cough Gastrointestinal: denies: abdominal pain, nausea, vomiting ED Past Medical Hx - Past Medical History Previous Medical History?: Yes Hx Hypertension: Yes (gestational) Hx Congestive Heart Failure: No Hx Diabetes: No Hx Deep Vein Thrombosis: No Hx Renal Disease: No Hx Sickle Cell Disease: No Hx Seizures: No Hx Asthma: No Hx COPD: No Hx HIV: No Additional medical history: High Cholesterol. graves - Surgical History Past Surgical History?: Yes Additional Surgical History: Spleenectomy, Right ovary removal - Social History Smoking Status: Never Smoker Substance Use Type: Alcohol, Marijuana - Medications Home Medications: Home Medications Medication Instructions Recorded Confirmed Last Taken Type Vit-Fe Fumar-FA [ 1 tab PO QDAY 08/02/16 08/31/16 08/30/16 History Vitamin] Labetalol [Normodyne TAB] 400 mg PO BID #112 tablet 08/07/16 08/31/16 08/31/16 Rx Methyldopa [Aldomet] 500 mg PO TID #84 tablet 08/07/16 08/31/16 08/27/16 Rx Ferrous Sulfate [Feosol 325 MG tab] 325 mg PO BID #60 tablet 09/02/16 Unknown Rx HYDROcodone/APAP 5-325 [[place] 1 each PO Q6HR PRN #30 tablet 09/02/16 Unknown Rx 5/325] Ibuprofen [Motrin] 800 mg PO Q8HR PRN #60 tablet 09/02/16 Unknown Rx Labetalol [Normodyne TAB] 400 mg PO BID #60 tablet 09/02/16 Unknown Rx NIFEdipine XL [Procardia Xl] 60 mg PO QDAY #30 tablet 09/02/16 Unknown Rx Nystas/Diphen/Xyl Visc/Mylanta 30 ml MM Q6H PRN #200 ml 07/25/17 Unknown Rx [Magic Mouthwash] hydroCHLOROthiazide [HCTZ] 25 mg PO QDAY #30 tablet 08/20/17 Unknown Rx Methimazole [Tapazole] 3 tab PO Q8H 30 Days #270 tablet 01/07/18 Unknown Rx Propranolol [Inderal] 40 mg PO DAILY 30 Days #30 tablet 01/07/18 Unknown Rx ED Physical Exam - General Limitations: No Limitations General appearance: alert, in no apparent distress - Head Head exam: Present: atraumatic, normocephalic - Eye Eye exam: Present: other (left proptosis) - ENT ENT exam: Present: mucous membranes moist - Neck Neck exam: Present: normal inspection. Absent: tenderness, meningismus - Respiratory Respiratory exam: Present: normal lung sounds bilaterally. Absent: respiratory distress, wheezes, rales - Cardiovascular Cardiovascular Exam: Present: regular rate, normal rhythm, normal heart sounds. Absent: bradycardia, tachycardia, systolic murmur, diastolic murmur, rubs, gallop - GI/Abdominal GI/Abdominal exam: Present: soft, normal bowel sounds. Absent: distended, tenderness, guarding, rebound - Extremities Exam Extremities exam: Present: normal inspection - Back Exam Back exam: Present: normal inspection - Neurological Exam Neurological exam: Present: alert, oriented X3 - Psychiatric Psychiatric exam: Present: normal affect, normal mood - Skin Skin exam: Present: warm, dry, intact, normal color. Absent: rash ED Course Vital Signs 01/07/18 15:55 Temperature 98.9 F Pulse Rate 78 Respiratory 14 Rate Blood Pressure 177/104 O2 Sat by Pulse 98 Oximetry ED Medical Decision Making - Lab Data Result diagrams: 01/07/18 16:13 01/07/18 16:13 Laboratory Results - last 24 hr 01/07/18 01/07/18 01/07/18 16:13 16:13 16:13 WBC 21.4 H RBC 3.67 Hgb 10.9 Hct 32.6 MCV 89 MCH 30 MCHC 33 RDW 14.5 Plt Count 396 Lymph # Mercury Cell Cleaner Add Manual Diff Complete Total Counted 100 Seg Neuts % (Manual) 58.0 Band Neutrophils % 0 Lymphocytes % (Manual) 36.0 H Reactive Lymphs % (Man) 0 Monocytes % (Manual) 5.0 Eosinophils % (Manual) 1.0 Basophils % (Manual) 0 Metamyelocytes % 0 Myelocytes % 0 Promyelocytes % 0 Blast Cells % 0 Nucleated RBC % Not Reportable Seg Neutrophils # Man 12.4 H Band Neutrophils # 0.0 Lymphocytes # (Manual) 7.7 H Abs React Lymphs (Man) 0.0 Monocytes # (Manual) 1.1 H Eosinophils # (Manual) 0.2 Basophils # (Manual) 0.0 Metamyelocytes # 0.0 Myelocytes # 0.0 Promyelocytes # 0.0 Blast Cells # 0.0 WBC Morphology Not Reportable Hypersegmented Neuts Not Reportable Hyposegmented Neuts Not Reportable Hypogranular Neuts Not Reportable Smudge Cells Not Reportable Toxic Granulation Not Reportable Toxic Vacuolation Not Reportable Dohle Bodies Not Reportable Pelger-Huet Anomaly Not Reportable Clara Rods Not Reportable Platelet Estimate Not Reportable Clumped Platelets Not Reportable Plt Clumps, EDTA Not Reportable Large Platelets Not Reportable Giant Platelets Not Reportable Platelet Satelliting Not Reportable Plt Morphology Comment Not Reportable RBC Morphology Normal Dimorphic RBCs Not Reportable Polychromasia Not Reportable Hypochromasia Not Reportable Poikilocytosis Not Reportable Anisocytosis Not Reportable Microcytosis Not Reportable Macrocytosis Not Reportable Spherocytes Not Reportable Pappenheimer Bodies Not Reportable Sickle Cells Not Reportable Target Cells Not Reportable Tear Drop Cells Not Reportable Ovalocytes Not Reportable Helmet Cells Not Reportable [place] Bodies Not Reportable [place] Rings Not Reportable Zechariah Cells Not Reportable Bite Cells Not Reportable Crenated Cell Not Reportable Elliptocytes Not Reportable Acanthocytes (Spur) Not Reportable Rouleaux Not Reportable Hemoglobin C Crystals Not Reportable Schistocytes Not Reportable Malaria parasites Not Reportable Chong Bodies Not Reportable Hem Pathologist Commnt No Sodium 142 Potassium 3.3 L Chloride 104.6 Carbon Dioxide 24 Anion Gap 17 BUN 6 L Creatinine 0.5 L Estimated GFR > 60 BUN/Creatinine Ratio 12 Glucose 94 Calcium 8.9 Total Bilirubin 0.60 AST 15 ALT 12 Alkaline Phosphatase 188 H Troponin T < 0.010 Total Protein 7.3 Albumin 3.8 L Albumin/Globulin Ratio 1.1 TSH Free T4 01/07/18 16:13 WBC RBC Hgb Hct MCV MCH MCHC RDW Plt Count Lymph # Add Manual Diff Total Counted Seg Neuts % (Manual) Band Neutrophils % Lymphocytes % (Manual) Reactive Lymphs % (Man) Monocytes % (Manual) Eosinophils % (Manual) Basophils % (Manual) Metamyelocytes % Myelocytes % Promyelocytes % Blast Cells % Nucleated RBC % Seg Neutrophils # Man Band Neutrophils # Lymphocytes # (Manual) Abs React Lymphs (Man) Monocytes # (Manual) Eosinophils # (Manual) Basophils # (Manual) Metamyelocytes # Myelocytes # Promyelocytes # Blast Cells # WBC Morphology Hypersegmented Neuts Hyposegmented Neuts Hypogranular Neuts Smudge Cells Toxic Granulation Toxic Vacuolation Dohle Bodies Pelger-Huet Anomaly Clara Rods Platelet Estimate Clumped Platelets Plt Clumps, EDTA Large Platelets Giant Platelets Platelet Satelliting Plt Morphology Comment RBC Morphology Dimorphic RBCs Polychromasia Hypochromasia Poikilocytosis Anisocytosis Microcytosis Macrocytosis Spherocytes Pappenheimer Bodies Sickle Cells Target Cells Tear Drop Cells Ovalocytes Helmet Cells [place] Bodies [place] Rings [place] Cells Bite Cells Crenated Cell Elliptocytes Acanthocytes (Spur) Rouleaux Hemoglobin C Crystals Schistocytes Malaria parasites Chong Bodies Hem Pathologist Commnt Sodium Potassium Chloride Carbon Dioxide Anion Gap BUN Creatinine Estimated GFR BUN/Creatinine Ratio Glucose Calcium Total Bilirubin AST ALT Alkaline Phosphatase Troponin T Total Protein Albumin Albumin/Globulin Ratio TSH < 0.005 L Free T4 2.43 H - Radiology Data Radiology results: image reviewed interpreted by me: CXR PA Lateral: no PTX no infiltrate normal heart size - Medical Decision Making Ms. Dudley presents with generalized malaise. Elevated WBC without signs of SIRS/ sepsis. No hx of steroid use. Will need f/u for hematological disorder. rx: methimazole , propanolol Critical care attestation.: If time is entered above; I have spent that time in minutes in the direct care of this critically ill patient, excluding procedure time. ED Disposition Clinical Impression: Graves disease, Elevated white blood cell count, Medication refill Disposition: - TO HOME OR SELFCARE Is pt being admited?: No Does the pt Need Aspirin: No Condition: Stable Instructions: Hyperthyroidism (ED) Prescriptions: Methimazole [Tapazole] 3 tab PO Q8H 30 Days #270 tablet Propranolol [Inderal] 40 mg PO DAILY 30 Days #30 tablet Referrals: MY SHEFFIELD MD [Staff Physician] - 3-5 Days [facility] [Outside] - 3-5 Days Time of Disposition: 19:16
[2018-01-07 20:37] VITALS: BP 173/116
--- NOTE | 2018-01-07 20:57 | XRay Report ---
FINAL REPORT EXAM: XR CHEST ROUTINE 2V HISTORY: cough leukocytosis TECHNIQUE: PA and lateral views of the chest PRIORS: None. FINDINGS: Lines, tubes, and devices: N/A Lungs and pleura: Trachea is normal in position. On the lateral view, there is increased markings overlying the lower thoracic spine. Findings are suspicious for atelectasis or early infiltrate. However, cannot confirm this on the frontal view. Lungs are otherwise clear of consolidation, pleural effusion, vascular congestion, or pneumothorax. Cardiomediastinal silhouette: Cardiac and mediastinal silhouettes are unremarkable. Other: Bony structures are intact. IMPRESSION: On the lateral view only, increased markings in the posterior lung base suspicious for atelectasis versus early infiltrate.
== END 2018-01-07 20:10 | disposition home or self-care (01) ==
LOC: ED 14:29
DX: E05.00 Thyrotoxicosis with diffuse goiter without thyrotoxic crisis or storm (principal); D72.829 Elevated white blood cell count, unspecified
CPT/HCPCS: 36415; 71046; 80053; 84439; 84443; 84484; 85007; 85025; 93005; 93010

== ENCOUNTER 2018-08-03 11:35 | Emergency (ER) | payer MEDICAID ==
[2018-08-03 11:43] VITALS: BP 149/79
--- NOTE | 2018-08-03 11:46 | Emergency Department Report ---
Chief Complaint: Sore Throat Stated Complaint: SORE THROAT/CONTRERAS Time Seen by Provider: 08/03/18 11:42 - HPI History of Present Illness: This is a 37 y.o. female that presents with sore throat and difficulty breath for 4 days. PMH of Graves disease and HTN. Patient states off levothyroxine since December. - Exam Vital Signs: Vital Signs 08/03/18 11:42 Temperature 99.1 F Pulse Rate 105 H Respiratory 20 Rate Blood Pressure 149/79 O2 Sat by Pulse 98 Oximetry MSE screening note: Focused history and physical exam performed. Due to findings the following was ordered: Labs ACC for further evaluation. ED Disposition for MSE Condition: Stable
--- NOTE | 2018-08-03 13:39 | Emergency Department Report ---
Minor Respiratory - HPI Chief Complaint: Sore Throat Stated Complaint: SORE THROAT/CONTRERAS Time Seen by Provider: 08/03/18 11:42 Duration: 3 Days Pain Location: Throat Severity: mild Minor Respiratory: Yes Sore Throat, Yes Able to Tolerate Fluids, Yes Fever, No Rhinorrhea, No Ear Pain, No Cough, No Sick Contacts, No Hemoptysis, No Chest Pain, No Shortness of Breath Other History: 3d hx sore throat with fever Thursday. no cough. also co for her Graves disease. she has not been treated because insurance has been cut off. ED Review of Systems ROS: Stated complaint: SORE THROAT/CONTRERAS Other details as noted in HPI Comment: All other systems reviewed and negative Constitutional: see HPI, fever. denies: chills Eyes: denies: eye pain ENT: denies: ear pain Respiratory: denies: cough Cardiovascular: denies: palpitations Endocrine: denies: intolerance to cold Gastrointestinal: denies: abdominal pain Genitourinary: denies: urgency Musculoskeletal: denies: back pain Skin: denies: lesions Psychiatric: denies: anxiety Hematological/Lymphatic: denies: easy bleeding ED Past Medical Hx - Past Medical History Hx Hypertension: Yes (gestational) Hx Congestive Heart Failure: No Hx Diabetes: No Hx Deep Vein Thrombosis: No Hx Renal Disease: No Hx Sickle Cell Disease: No Hx Seizures: No Hx Asthma: No Hx COPD: No Hx HIV: No Additional medical history: High Cholesterol. graves. G6PD deficiency - Surgical History Past Surgical History?: Yes Additional Surgical History: Spleenectomy, Right ovary removal - Social History Smoking Status: Never Smoker Substance Use Type: Marijuana - Medications Home Medications: Home Medications Medication Instructions Recorded Confirmed Last Taken Type Amoxicillin 500 mg PO BID #20 capsule 08/03/18 Unknown Rx Minor Respiratory Exam - Exam General: Vital signs noted. No distress. Alert and acting appropriately. HEENT: Yes Pharyngeal Erythema, Yes Moist Mucous Membranes, No Pharyngeal Exudates, No Rhinorrhea, No Conjuctival Injection, No Frontal Tenderness, No Maxillary Tenderness Ear: Neither TM Bulge, Neither TM Erythema, Neither EAC Pain, Neither EAC Discharge Neck: Yes Supple, No Adenopathy Lungs: Yes Good Air Exchange, No Wheezes, No Ronchi, No Stridor, No Cough, No Labored Respirations, No Retractions, No Use of Accessory Muscles, No Other Abnormal Lung Sounds Heart: Yes Regular, No Murmur Abdomen: Yes Normal Bowel Sounds, No Tenderness, No Peritoneal Signs Skin: No Rash, No Edema Neurologic: Alert and oriented, no deficits. Musculoskeletal: Unremarkable. ED Course Vital Signs 08/03/18 11:42 Temperature 99.1 F Pulse Rate 105 H Respiratory 20 Rate Blood Pressure 149/79 O2 Sat by Pulse 98 Oximetry ED Medical Decision Making - Medical Decision Making simple urti no goiter abc intact no abscess ambulatory taking po discussed seeing pcp for thyroid no cp no sob HR 100 on exam with temp 99.5 dc home with dc plan of care Labs 08/03/18 08/03/18 08/03/18 11:44 11:55 11:55 TSH < 0.005 L Thyroxine (T4) 10.3 Group A Strep Rapid Positive A Vital Signs (72 hours) 08/03/18 11:42 Temperature 99.1 F Pulse Rate 105 H Respiratory 20 Rate Blood Pressure 149/79 O2 Sat by Pulse 98 Oximetry Critical care attestation.: If time is entered above; I have spent that time in minutes in the direct care of this critically ill patient, excluding procedure time. ED Disposition Clinical Impression: Sore throat, Graves disease Disposition: DC-01 TO HOME OR SELFCARE Is pt being admited?: No Does the pt Need Aspirin: No Condition: Stable Instructions: Strep Throat (ED) Additional Instructions: DIET TOLERATED MEDS ORDERED FOLLOW UP PCP ACTIVITY TOLERATED MOTRIN OR TYLENOL FOR PAIN OR FEVER FOLLOW UP WITH PCP REFERRAL BELOW Prescriptions: Amoxicillin 500 mg PO BID #20 capsule Referrals: [facility] [Outside] - 3-5 Days Time of Disposition: 13:38
== END 2018-08-03 14:09 | disposition home or self-care (01) ==
LOC: ED 11:35
DX: E05.00 Thyrotoxicosis with diffuse goiter without thyrotoxic crisis or storm (principal); I10 Essential (primary) hypertension; E78.00 Pure hypercholesterolemia, unspecified; F12.10 Cannabis abuse, uncomplicated; Z90.89 Acquired absence of other organs; Z88.6 Allergy status to analgesic agent; Z88.2 Allergy status to sulfonamides
CPT/HCPCS: 36415; 84436; 84443; 87430; 99283